=== PATIENT | male | born 1965 | race Caucasian/White ===

== ENCOUNTER 2024-06-16 18:30 | Emergency (ER) | payer OTHER, MEDICARE, SELFPAY ==
[2024-06-16] VITALS (7 sets, daily range): BP systolic 121–160; BP diastolic 70–82; BMI 23.1
[2024-06-16 19:53] LABS: % Basophils 0.2 % (0-2); % Eosinophils 6.2 % (0-6); % Immature Granulocytes 0.2 % (0-0.5); % Lymphocytes 24.5 % (20.5-51.1); % Monocytes 13.2 % (1.7-9.3); % Neutrophils 55.7 % (42.2-75.2); Absolute Eosinophils 0.3 10^3/uL (0-0.7); Absolute Lymphocytes 1.2 10^3/uL (1.2-3.4); Absolute Monocytes 0.6 10^3/uL (0.1-0.6); Absolute Neutrophils 2.6 10^3/uL (1.4-6.5); Hematocrit 40.6 % (39.0-52.0); Hemoglobin 13.7 g/dL (13.0-18.0); Mean Corp Hgb Conc. 33.7 g/dL (33.0-37.0); Mean Corpuscular Hgb 32.6 pg (27.0-31.0); Mean Corpuscular Volume 96.7 fL (80.0-94.0); Mean Platelet Volume 11.2 fL (7.4-10.4); Nucleated Red Blood Cells % 0 % (-); Platelet Count 154 10^3/uL (130-400); Red Cell Dist. Width 13.2 % (11.5-14.5); White Blood Cell Count 4.7 10^3/uL (4.8-10.8)
--- NOTE | 2024-06-16 20:00 | ED.GENMED ---
History of Present Illness
General
Chief Complaint: Breathing Problem
Source: patient and spouse
Exam Limitations: none
Time Seen by Provider: 06/16/24 19:46
Nursing documentation reviewed up to this point in time: agreed with
History of Present Illness
History of Present Illness:
The patient is a pleasant 59-year-old man who reports that he received immunizations for pneumonia and tetanus in his left arm last Sunday, which was 5 days ago. He reports he woke up the following morning with severe pain in his left armpit and
down his left arm. He denies weakness and numbness of his arms. He reports he also noticed labored breathing since then. His symptoms have been ongoing. He reports that his pain is improved since yesterday. He reports a dry cough but no fever.
He reports that at times the pain spreads into his left chest area. Currently he has minimal pain in the left arm but has no chest pain. He denies sweating and dizziness. He denies fever and redness of the left arm.
Past History
Past History
ED Past Medical History: CVA, Hypercholesterolemia and Other (Heart murmur)
ED Past Surgical History: Appendectomy and Other (Partial right lobectomy)
Social History
Tobacco: Non-smoker
Alcohol: Other
Drug: None
Personal:
Living: with family
Employment: Other
Family History
Family History: Adopted
Review of Systems
Review of Systems
Allergies reviewed?: Yes
All Other Systems: ROS reviewed and negative except as documented in HPI and ROS
Constitutional: Reports no symptoms
EENT: Reports no symptoms
Respiratory: Reports trouble breathing
Cardiac: Reports chest pain
ABD/GI: Reports no symptoms
: Reports no symptoms
Musculoskeletal: Reports muscle pain and muscle stiffness
Skin: Reports no symptoms
Neurological: Reports no symptoms
Endocrine: Reports no symptoms
Hematologic/Lymphatic: Reports no symptoms
Psychiatric: Reports no symptoms
Phy Exam
Physical Exam
Physical Exam:
Physical Exam
General: no apparent distress, not acutely ill, smiling, laughing, conversational
Neck: supple. no meningeal signs. normal psoterior pharynx
Heart: s1/s2 regular rate and rhythm, murmur present. Equal radial and femoral pulses bilaterally
Lungs: no acute respiratory distress. clear bilaterally. Speaks in full sentences without any sign of respiratory distress
Abdomen: normal bowel sounds. not tender. no CVAT. No pulsatile mass
Neuro: alert and oriented. no focal neurological deficits
Skin: no rash
Psychiatric: well kept. interactive and cooperative
Extremities: no edema. no calf tenderness. negative homans. good distal pulses. No lymphadenopathy felt in left axilla area. There is no swelling, soft tissue tenderness, rash or skin erythema or warmth of left upper
extremity including axilla area. Strong pulses in bilateral wrists.
Scores
Heart Failure Risk
Heart Failure Risk Score: Not Applicable
Course
Orders/Labs/Results
Orders:
Orders
06/16/24 18:37
Electrocardiogram (*1) Urgent
Reason for Study: Chest Pain
EKG- Treatment ONCE
06/16/24 19:28
IV Insert/Care/Rem.- Treatment PRN
06/16/24 19:44
Complete Blood Count/With Diff Urgent
Comprehensive Metabolic Panel Urgent
NT-proBNP Urgent
Troponin I Urgent
06/16/24 20:[address] Non Medication Order As Directed
Physician Order: walking pulse ox
Above order entered?: Yes
CR Chest - 2 Views Urgent
Comment:
Reason For Exam: SOB
Abnormal Lab Results
06/16/24
19:44
WBC 4.7 L 10^3/uL
(4.8-10.8)
RBC 4.20 L 10^6/uL
(4.70-6.10)
MCV 96.7 H fL
(80.0-94.0)
MCH 32.6 H pg
(27.0-31.0)
MPV 11.2 H fL
(7.4-10.4)
Monocytes % 13.2 H %
(1.7-9.3)
Eosinophils % 6.2 H %
(0-6)
Glucose 100 H mg/dl
(70-99)
06/16/24 19:44
06/16/24 19:44
Vital Signs
Initial and Last Documented VS:
Initial Vital Signs
Temp Pulse Resp BP Pulse Ox
98 F 73 18 160/82 97
06/16/24 18:32 06/16/24 18:32 06/16/24 18:32 06/16/24 18:32 06/16/24 18:32
Last Documented Vital Signs
Temp Pulse Resp BP Pulse Ox
98 F 61 24 134/76 95
06/16/24 18:32 06/16/24 22:30 06/16/24 22:30 06/16/24 22:00 06/16/24 22:30
MDM/Problems Addressed
Differential Diagnosis Includes:
Acute coronary syndrome, pneumonia, musculoskeletal pain from immunizations
MDM/Problems Addressed:
Patient reports acute chest pain and arm pain
Chronic conditions affecting care:
Partial lobectomy of right lung
*Radiology
Radiology exam reviewed: preliminary read by ED provider (Chest x-ray read by me. No acute disease) and radiology read reviewed
*Pulse Oximetry
Patient hypoxic: no
*EKG
Interpreted by ED Provider?: Yes
Interpretation: abnormal
Comparison EKG: no changes
Rate: normal
Rhythm: sinus and PVC's
Saunemin: normal axis
Interval: normal interval
QRS Pattern: normal QRS
Ischemia: non-specific ST changes
*Timber Sprinkler Interpretation
Rate: normal
Interpretation: normal
Rhythm: sinus
*Critical Care Note
Total Time (30-74mins, 75-104mins- exclusive of procedures): Not Applicable
Data Reviewed
Review of Other/Old Records Reveals: Testing (Echo shows normal LV function 2022)
Patient Management
Social determinants of health affecting care: Living situation and Strong social support
Escalation/DeEscalation of care consider admission/obs:
Patient remains extremely well and comfortable appearing. Clinically there is no sign of acute coronary syndrome. Chest x-ray shows no sign of pneumonia
ED Attending Note
-
Portions of this chart may have been created with voice recognition software.� Occasional wrong word or��sound alike� substitutions may have occurred due to the inherent limitations of voice recognition software.
Discharge Plan
Departure
Patient Disposition: Home (Routine Discharge)
Date of Disposition: 06/16/24
Time of Disposition: 22:03
Patient with high blood pressure during this ER visit?: No
Condition: Good
Covid-19: Not Applicable
Discharge Problem:
Chest pain in adult
Instructions: Chest Pain [facility] Follow Up
Prescriptions:
No Action
aspirin 81 mg Tablet,Delayed Release (Dr/Ec)
81 mg PO DAILY
rosuvastatin 10 mg Tablet
15 mg PO DAILY
Referrals:
UNKNOWN,NO INTERVIEW [Family Provider] -
Interventions
Interventions:
*Risk Screen - Suicide Last Done: 06/16/24 18:32
*General Assessment Last Done: 06/16/24 18:32
*Neglect/Abuse Screening Last Done: 06/16/24 18:32
*ED- Fall Risk Assessment Last Done: 06/16/24 19:13
*ED COVID-19 Vaccine History Last Done: 06/16/24 19:13
*Nursing Disposition Last Done: 06/16/24 22:30
ED- Cardiac Assessment Last Done: 06/16/24 19:13
ED- Pulmonary Assessment Last Done: 06/16/24 19:13
Discharge Date and Time
Discharge Date/Time: 06/16/24 20:30
Print Language: WELSH
[2024-06-16 20:11] LABS: ALT (SGPT) 26 U/L (0-50); AST (SGOT) 31 U/L (17-59); Albumin 4.6 g/dl (3.5-5.0); Alkaline Phosphatase 79 U/L (38-126); Blood Urea Nitrogen 13 mg/dl (9-20); Calcium 9.3 mg/dl (8.4-10.2); Carbon Dioxide 25 mmol/L (22-30); Chloride 104 mmol/L (98-107); Estimated Creatinine Clearance 94 ml/min; Glucose 100 mg/dl (70-99); Potassium 4.2 mmol/L (3.5-5.1); Sodium 138 mmol/L (135-145); Total Bilirubin 0.9 mg/dl (0.2-1.3); eGFR > 60.00
[2024-06-16 20:21] LABS: NT-proBNP 508 pg/ml; Troponin I < 0.012 ng/ml
== END 2024-06-16 20:30 | disposition home or self-care (01) ==
LOC: EMR 18:30
PROVIDERS: EMERGENCY PHYSICIAN Emergency Medicine
DX: R07.89 Other chest pain (principal)
CPT/HCPCS: 99285; 71046; 80053; 83880; 84484; 85025; 93005

== ENCOUNTER 2024-06-26 13:09 | Observation (INO) | payer OTHER, MEDICARE, SELFPAY ==
[2024-06-26] VITALS (17 sets, daily range): BP systolic 116–148; BP diastolic 58–76; PULSE 55–64; BMI 23.6; BMI 22.3
--- NOTE | 2024-06-26 10:07 | ED.GENMED ---
History of Present Illness
General
Chief Complaint: Chest Pain
Time Seen by Provider: 06/26/24 09:53
History of Present Illness
History of Present Illness:
Patient is a 59-year-old male with history of mitral regurgitation, mitral valve prolapse, hyperlipidemia presenting to the emergency department with chest pain and dizziness. 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
given the dyspnea on exertion they did schedule him for an echo tomorrow. While he was there he became extremely dizzy so they sent him here to the emergency room for further evaluation. He states that the dizziness has been ongoing for a few
weeks. Is mostly when he moves from sitting to standing. However it can occur while he is sitting as well. Has not passed out. Denies any positional changes. He also notes that he has some chest pain on and off. It is not exertional. He is
also having more dyspnea on exertion however he states over the past few days it has been improving.
Past History
Past History
ED Past Medical History: CVA, Hypercholesterolemia and Other (Heart murmur)
ED Past Surgical History: Appendectomy and Other (Partial right lobectomy)
Social History
Tobacco: Non-smoker
Alcohol: Other
Drug: None
Personal:
Living: with family
Employment: Other
Family History
Family History: Adopted
Phy Exam
Physical Exam
Physical Exam:
GENERAL: in no acute distress
HEENT: normocephalic, extraocular movements intact, moist oral mucosa
NECK: normal inspection
RESPIRATORY: no respiratory distress, crackles at the bases worse on the right
CARDIOVASCULAR: regular rate and rhythm, systolic murmur
ABDOMEN/: soft, non-distended, non-tender to palpation, no rebound or guarding
EXTREMITIES: non-tender, no edema/swelling
NEUROLOGIC: awake and alert, moves all extremities, no gross motor or sensory deficits, normal [id number]
SKIN: warm
Scores
Heart Score for Chest Pain Patients
STEMI patient?: Not applicable
Course
Orders/Labs/Results
Orders:
Orders
06/26/24 09:31
Electrocardiogram (*1) Urgent
Reason for Study: Chest Pain
06/26/24 09:32
EKG- Treatment ONCE
06/26/24 10:03
CT Head W/o Iv Contrast Urgent
Comment:
Reason For Exam: dizziness
Orthostatic VS- Treatment ONCE
CR Chest - 2 Views Urgent
Comment:
Reason For Exam: crackles RLL
06/26/24 10:13
Complete Blood Count/With Diff Urgent
Comprehensive Metabolic Panel Urgent
Troponin I Urgent
06/26/24 10:47
0.9% Sodium Chloride 500 ml [Nss] 500 ml IV BOLUS
Abnormal Lab Results
06/26/24
10:13
RBC 4.03 L 10^6/uL
(4.70-6.10)
MCV 98.5 H fL
(80.0-94.0)
MCH 32.5 H pg
(27.0-31.0)
MPV 11.6 H fL
(7.4-10.4)
Absolute Lymphs (auto) 1.1 L 10^3/uL
(1.2-3.4)
Lymphocytes % 19.3 L %
(20.5-51.1)
Monocytes % 10.0 H %
(1.7-9.3)
Carbon Dioxide 31 H mmol/L
(22-30)
06/26/24 10:13
06/26/24 10:13
Vital Signs
Initial and Last Documented VS:
Initial Vital Signs
Temp Pulse Resp BP Pulse Ox
98.2 F 55 16 148/59 98
06/26/24 09:29 06/26/24 09:29 06/26/24 09:29 06/26/24 09:29 06/26/24 09:29
Last Documented Vital Signs
Temp Pulse Resp BP Pulse Ox
98.2 F 55 16 124/59 97
06/26/24 09:29 06/26/24 10:46 06/26/24 10:46 06/26/24 10:00 06/26/24 10:00
MDM/Problems Addressed
Differential Diagnosis Includes:
Patient is a 59-year-old male with history of mitral regurgitation, mitral valve prolapse presenting to the emergency department with dizziness dyspnea on exertion and occasional chest pain. Vitals are unremarkable and exam does show a systolic
murmur as well as crackles at the bases of the lung. Patient does not have any neurodeficits. Unclear cause of patient's dizziness but could be orthostatic. However he states that sometimes it occurs while he is sitting. Will check blood work
EKG and CT scan of the head. Will obtain orthostatic vital signs. Given the chest pain will check troponin. The dyspnea on exertion certainly could be secondary to pulmonary edema from the mitral regurgitation or worsening valvular disease. He
is scheduled for tomorrow. Will discuss with patient's employment appeals examiner who sent him to the emergency department for further recommendations.
*Critical Care Note
Total Time (30-74mins, 75-104mins- exclusive of procedures): Not Applicable
Update Note
Update Note:
On reevaluation patient resting comfortably. He does state that when he went to CT scan and had to move from the stretcher to the CT scanner he became extremely lightheaded dizzy with the movement. Will give him a small fluid bolus. CT scan of
the head with no acute abnormality. Chest x-ray per my interpretation with no significant vascular congestion or pleural effusion.
I did discuss with cardiology INTERNIST MEDICAL DOCTOR MD that sent patient over for evaluation. Their concern was regarding patient's dizziness and history of stroke. The echo is scheduled for tomorrow. That would patient states the last and he had a stroke he had
numbness tingling in his extremities. He is on a baby aspirin.
His orthostatics were negative. I did give him fluids and he does state that when he got up out of bed the symptoms were not there. However he had an episode while at rest. Given unclear cause of patient's dizziness will admit for further
evaluation. Discussed with hospitalist who accepted patient to their service
ED Attending Note
-
Portions of this chart may have been created with voice recognition software.� Occasional wrong word or��sound alike� substitutions may have occurred due to the inherent limitations of voice recognition software.
Discharge Plan
Departure
Prescriptions:
No Action
aspirin 81 mg Tablet,Delayed Release (Dr/Ec)
81 mg PO DAILY
rosuvastatin 10 mg Tablet
15 mg PO DAILY
Referrals:
Yash Willis DO [Family Provider] -
Interventions
Interventions:
*Risk Screen - Suicide Last Done: 06/26/24 09:29
*General Assessment Last Done: 06/26/24 10:42
*Neglect/Abuse Screening Last Done: 06/26/24 09:29
*ED- Fall Risk Assessment Last Done: 06/26/24 10:42
*ED COVID-19 Vaccine History Last Done: 06/26/24 10:42
ED- Cardiac Assessment Last Done: 06/26/24 10:42
Discharge Date and Time
Print Language: OCCITAN
[2024-06-26 10:19] LABS: % Basophils 0.2 % (0-2); % Eosinophils 2.6 % (0-6); % Immature Granulocytes 0.4 % (0-0.5); % Lymphocytes 19.3 % (20.5-51.1); % Neutrophils 67.5 % (42.2-75.2); Absolute Eosinophils 0.2 10^3/uL (0-0.7); Absolute Lymphocytes 1.1 10^3/uL (1.2-3.4); Absolute Monocytes 0.6 10^3/uL (0.1-0.6); Absolute Neutrophils 3.9 10^3/uL (1.4-6.5); Hematocrit 39.7 % (39.0-52.0); Hemoglobin 13.1 g/dL (13.0-18.0); Mean Corpuscular Hgb 32.5 pg (27.0-31.0); Mean Corpuscular Volume 98.5 fL (80.0-94.0); Mean Platelet Volume 11.6 fL (7.4-10.4); Nucleated Red Blood Cells % 0 % (-); Platelet Count 155 10^3/uL (130-400); Red Blood Cell Count 4.03 10^6/uL (4.70-6.10); Red Cell Dist. Width 13.1 % (11.5-14.5); White Blood Cell Count 5.7 10^3/uL (4.8-10.8)
[2024-06-26 10:33] LABS: ALT (SGPT) 27 U/L (0-50); AST (SGOT) 24 U/L (17-59); Alkaline Phosphatase 78 U/L (38-126); Blood Urea Nitrogen 18 mg/dl (9-20); Calcium 9.3 mg/dl (8.4-10.2); Carbon Dioxide 31 mmol/L (22-30); Chloride 107 mmol/L (98-107); Glucose 99 mg/dl (70-99); Potassium 4.3 mmol/L (3.5-5.1); Sodium 141 mmol/L (135-145); Total Bilirubin 0.9 mg/dl (0.2-1.3); Total Protein 6.6 g/dl (6.3-8.2); eGFR > 60.00
[2024-06-26 10:44] LABS: Troponin I < 0.012 ng/ml
--- NOTE | 2024-06-26 10:50 | EDRN ---
Patient denied c/o dizziness with orthostatic vital signs.
[2024-06-26] MEDS: NSS 500 IV (10:55)
--- NOTE | 2024-06-26 12:21 | HPS.HSE ---
Family Physician
-
Family Physician: Yash Willis
Chief Complaint
-
dizziness
History of Present Illness
HPI
59M HX MR / MVR, prior HX small Stoke at left occipital lobe without residual weakness, HLD on statin, seen at OP Card for Morales and CP but sent to ER for persistent dizziness at rest and also positional, for few weeks
Mostly when he moves from sitting to standing and also while sitting as well
- not passed out.
- some non exertiional chest pain on and off.
- more dyspnea on exertion however he states over the past few days it has been improving.
Medical History
Past Medical History
Past Medical History: Reports Other
Additional Past Medical History:
CVA
HLD
Past Surgical History: Reports Other
Additional Past Surgical History:
Appendectomy
Hernia repair
Right lobectomy
Social History
Tobacco: Non-smoker
Alcohol: Occasional (3-4x yearly)
Drug: None
Personal:
Living: With Family
Family History
Family History: Not pertinent
Allergies / Home Medications
Allergies reflects when Allergies were last updated in [facility].
Home Medications with original date entered in [facility]
Allergy/Medication List:
Allergies
Allergy/AdvReac Type Severity Reaction Status Date / Time
No Known Allergies Allergy Verified 12/25/22 07:31
Home Medications
aspirin 81 mg tablet,delayed release 81 mg PO DAILY Blood Clot Prevention/Tx 12/25/22
rosuvastatin 10 mg tablet 15 mg PO DAILY High Cholesterol 12/25/22
Review of Systems
-
Constitutional: Reports No Symptoms
EENT: Reports No Symptoms
Respiratory: Reports Other (sob with exertion improved )
Cardiac: Reports Chest Pain
Abdomen/GI: Reports No Symptoms
: Reports No Symptoms
Musculoskeletal: Reports No Symptoms
Skin: Reports No Symptoms
Neurological: Reports Dizzy
Endocrine: Reports No Symptoms
Hematologic/Lymphatic: Reports No Symptoms
Psych: Reports No Symptoms
Physical Exam
Vital Signs
Vital Signs
Temp Pulse Resp BP Pulse Ox
98.2 F 55 16 124/59 97
06/26/24 09:29 06/26/24 10:46 06/26/24 10:46 06/26/24 10:00 06/26/24 10:00
Physical Exam
General: Well Developed, Well Nourished and No Apparent Distress
HEENT: NormoCephalic, Moist mucous membranes and Atraumatic
Respiratory: Clear
Cardiac: S1/S2 and Regular Rhythm
GI: Soft, Non Tender, Non Distended and Normal Bowel Sounds; No Organomegaly
Rectal: Deferred by Provider
Musculoskeletal: No Clubbing, No Cyanosis and No Edema
Skin: No Rash
Neuro: Nonfocal/grossly intact
Laboratory Results
-
06/26/24 10:13
06/26/24 10:13
Laboratory Results
Total Bilirubin 0.9 mg/dl (0.2-1.3) 06/26/24 10:13
AST 24 U/L (17-59) 06/26/24 10:13
ALT 27 U/L (0-50) 06/26/24 10:13
Alkaline Phosphatase 78 U/L (38-126) 06/26/24 10:13
Troponin I < 0.012 ng/ml 06/26/24 10:13
Data Reviewed
-
Diagnostic Radiology: Report Reviewed by me
Medical Tests (Nuc Med, Echo, EKG etc): Report Reviewed by me
Lab Data: Labs Reviewed by me
Old Records: Reviewed
Impression/Plan
-
Data
Selected Entries
06/26/24
09:29 06/26/24
09:51 06/26/24
10:00
Temp 98.2 F
Pulse 55 56
Blood pressure 148/59 130/63
SaO2 98
Oxygen Mode of Delivery Room air
Laboratory Tests
06/26/24
10:13
WBC 5.7
Hgb 13.1
Plt Count 155
Carbon Dioxide 31 H
Creatinine 1.0
eGFR > 60.00
Troponin I < 0.012
EKG
SINUS BRADYCARDIA WITH OCCASIONAL PREMATURE VENTRICULAR COMPLEXES
POSSIBLE LEFT ATRIAL ENLARGEMENT
BORDERLINE ECG
WHEN COMPARED WITH ECG OF 16-JUN-2024 18:42,
NO SIGNIFICANT CHANGE WAS FOUND
CXR
No acute cardiopulmonary abnormality
HCT Head W/o Iv Contrast
No acute intracranial abnormality noted.
Small focus of encephalomalacia within the left occipital lobe.
02/28/23 TTE
Normal left ventricular size and systolic function.
LV ejection fraction is 57% by Montano's biplane method of discs.
Mild concentric left ventricular hypertrophy.
Myxomatous appearing mitral valve.
Bileaflet mitral valve prolapse.
Mild to moderate eccentric mitral regurgitation-posteriorly directed.
Indexed LA volume is mildly abnormal (35-41 mL/m2).
Mild tricuspid regurgitation.
Estimated pulmonary artery pressure of 30 mmHg assuming a right atrial pressure
of 3 mmHg.
Trace pulmonic regurgitation.
Mild aortic regurgitation.
The IVC is of normal size and demonstrates normal respiratory variation.
Last hospitalist admission: 12/25/22 -12/28/22 PDXs: Partial small bowel obstruction versus enteritis
ASSESSMENT & PLAN
Pending Rx reconciliation
Acute dizzy spell and ongoing at rest and positional
Prior HX Stroke with non residual deficits
Clinically dehydrated
- Non focal neuro deficit
- NEG postural orthostasis and serial Ortho VSS daily
- Unremarkable Labs
- NEG HCT
- Remain dizzy despite IVF
- will cont. more IV NS 60/h for 1000 CC
- Fall precaution
- PT consult
- Neuro consulted
MORALES and CP : currently CP free
Sinus Vahe cardia
NEG EKG for acute ischemic changes
HX MR/MVR
- seen at Card office and sent to ER for dizziness
- for ECHO in AM
- [facility] card consulted
Prior HX CVA likely old stroke at Small focus of encephalomalacia within the left occipital lobe.
HLD on statin
- c/w SENIOR PROJECT ARCHITECT ASA and Rosuvastatin
Abnormal Prior TTE
LVEF 57%
Myxomatous appearing mitral valve.
Bileaflet MVR
Mild to moderate MR -posteriorly directed.
Indexed LA volume is mildly abnormal (35-41 mL/m2).
Mild TR
Estimated PASP 30 mmHg assuming a right atrial pressure of 3 mmHg.
Trace VT
Mild AR
The IVC is of normal size and demonstrates normal respiratory variation.
- follow up with [facility] Card as OP
- f/u ECHO in AM
DVT Px: LMWH
Code: Full
Obs TLM
--- NOTE | 2024-06-26 12:41 | CON.NEURO ---
Consultation
Order
Date of Consultation: 06/26/24
Requesting Provider: Darvin Jasso PA
Reason for Consult: Dizziness
Neurology Consultation Note.
HPI: This is a 59-year-old man who presented to [facility] on 06/26/2024 with dizziness, shortness of breath and chest pain. The dizziness is described as imbalance/lightheadedness, provoked by positional changes, particularly when
going from sitting to standing, but can also occur at rest. The patient denies associated symptoms such as ear pain, changes in swallowing, voice alterations, or double vision.
According to EMR patient was seen in May 2022 for dizziness with associated coughing.
Mr. Ann has a history of cryptogenic(?) left BEVERAGE MANAGER territory stroke in 2012 with residual right visual field deficits and cognitive deficits. According to patient's spouse the patient has had progression of his memory deficits over the last
several years.
ER VS: 148/59, 55�51, afebrile.
EKG: Sinus bradycardia, QTc Int : 409 ms
PDMP: no recently prescribed medic
Labs: normal glucose, sodium, creatinine, WBCs, platelets.
CT head wo contrast�chronic left BEVERAGE MANAGER infarct.
TTE(05/16/2012) The atrial septum is aneurysmal with equivocal criteria for a patent foramen ovale by color flow. However an ejection of the agitated saline confirms a patent foramen ovale with a few microbubbles crossing into the left atrium.
PMH: Left BEVERAGE MANAGER stroke (2012), PFO, DLP, B12 deficiency
PSH: Left inguinal hernia repair, appendectomy,R LL lobectomy for congenital formation
SH: , on disability, occasional smoker, no history excessive alcohol use, completed high school and tech school, former tractor trailer truck driver, does not drive
FH: Adopted
All:NKDA
ROS: Constitutional: Negative. Negative for chills, fever and unexpected weight change.
HENT: Negative for ear pain, hearing loss, tinnitus and trouble swallowing.
Eyes: Positive for visual limitations and right
Respiratory: Negative for cough, choking and shortness of breath.
Cardiovascular: Negative for chest pain, palpitations and leg swelling.
Gastrointestinal: Negative for abdominal pain and vomiting.
Endocrine: Negative. Negative for cold intolerance.
Genitourinary: Negative for dysuria, flank pain and urgency.
Musculoskeletal: Negative for back pain, gait problem, neck pain and neck stiffness.
Skin: Negative for rash.
Allergic/Immunologic: Negative. Negative for immunocompromised state.
Neurological: Positive for dizziness, short-term memory problems
Psychiatric/Behavioral: Negative for behavioral problems, confusion and hallucinations.
General: Well developed. In no acute distress.
Cardio: Regular rate and rhythm without murmur. Extremities are without cyanosis or edema.
Neuro:
Mental Status: Alert, oriented to person, month, year. Did not know the date. Preserved attention and comprehension. Nonfluent. Follows simple requests consistently. No hemineglect
Cranial Nerves: Pupils are equally round and reactive to light. EOMs full. Right homonymous hemianopsia no ptosis. No nystagmus. V1-V3 intact to light touch and pinprick bilaterally, symmetric. Face symmetric. Normal hearing AU. The palate
elevated well. SCMs and traps 5/5. Tongue midline. No dysarthria.
Motor: Normal bulk and tone. No pronator or arm drift. Strength 5/5 throughout. No clonus.
Reflexes: 2+ throughout the upper extremities and knees. Plantar responses flexor bilaterally.
Sensory: Normal vibration at the toes
Coordination: No dysmetria or tremor.
Gait: deferred
Assessment and Plan:
I. Dizziness. No evidence of nystagmus, dysmetria, cranial nerve abnormalities to suggest FIRE AND EXPLOSION INVESTIGATOR origin.
II. Chronic cryptogenic left BEVERAGE MANAGER stroke. PFO.
III. Vascular encephalopathy.
-Continue Telemetry monitoring
-Please obtain orthostatic vital signs
-Cardiology consult
-Brain MRI without venkat
-Please check TFTs, urine tox.
-Please obtain medical records from Dr. Muir office for review
-Outpatient EEG
-DVT prophylaxis.
I personally reviewed all radiology and labs along with past medical records pertinent to current medical problems. Total time spent in patient care is 60 minutes.
Thank you for allowing us to participate in the care of this patient. We will continue to follow. Please do not hesitate to contact us with any questions or concerns.
Subjective/Objective
Subjective Data
Date of Service: June 26, 2024
Objective Data
Vital Signs
Temp Pulse Resp BP Pulse Ox
36.8 C 60 14 126/69 97
06/26/24 09:29 06/26/24 12:30 06/26/24 12:30 06/26/24 12:00 06/26/24 10:00
Lab Results
06/26/24 10:13
06/26/24 10:13
Sodium 141 mmol/L (135-145) 06/26/24 10:13
Potassium 4.3 mmol/L (3.5-5.1) 06/26/24 10:13
BUN 18 mg/dl (9-20) 06/26/24 10:13
Glucose 99 mg/dl (70-99) 06/26/24 10:13
Calcium 9.3 mg/dl (8.4-10.2) 06/26/24 10:13
Patient Allergies
No Known Allergies Allergy (Verified 12/25/22 07:31)
Medications
-
Home Medications
�Medication �Instructions �Recorded
aspirin 81 mg tablet,delayed 81 mg PO DAILY Blood Clot 12/25/22
release Prevention/Tx
rosuvastatin 10 mg tablet 15 mg PO DAILY High Cholesterol 12/25/22
Vital Signs and Labs
-
Vital Signs and Labs:
Vital Signs
Temp Pulse Resp BP Pulse Ox
36.8 C 60 14 126/69 97
06/26/24 09:29 06/26/24 12:30 06/26/24 12:30 06/26/24 12:00 06/26/24 10:00
Lab Results
06/26/24 10:13
06/26/24 10:13
Sodium 141 mmol/L (135-145) 06/26/24 10:13
Potassium 4.3 mmol/L (3.5-5.1) 06/26/24 10:13
BUN 18 mg/dl (9-20) 06/26/24 10:13
Glucose 99 mg/dl (70-99) 06/26/24 10:13
Calcium 9.3 mg/dl (8.4-10.2) 06/26/24 10:13
Home Medications
-
Home Medications
aspirin 81 mg tablet,delayed release 81 mg PO DAILY Blood Clot Prevention/Tx 12/25/22
rosuvastatin 10 mg tablet 15 mg PO DAILY High Cholesterol 12/25/22
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
[2024-06-26 15:41] LABS: TSH Reflex To Free T4 0.47 uIU/ml (0.47-4.68)
[2024-06-26 17:49] LABS: ALT (SGPT) 27 U/L (0-50); AST (SGOT) 25 U/L (17-59); Albumin 4.3 g/dl (3.5-5.0); Alkaline Phosphatase 90 U/L (38-126); Blood Urea Nitrogen 16 mg/dl (9-20); Calcium 9.2 mg/dl (8.4-10.2); Carbon Dioxide 27 mmol/L (22-30); Chloride 106 mmol/L (98-107); Estimated Creatinine Clearance 92 ml/min; Glucose 95 mg/dl (70-99); Potassium 4.2 mmol/L (3.5-5.1); Sodium 141 mmol/L (135-145); Total Bilirubin 1.1 mg/dl (0.2-1.3); Total Protein 6.7 g/dl (6.3-8.2); eGFR > 60.00
[2024-06-26] MEDS: LOVENOX 40 MG SC (18:21)
[2024-06-26] MEDS: NSS 1000 IV (18:22)
[2024-06-26 19:39] LABS: Amphetamines Negative (Negative); Barbiturates Negative (Negative); Benzodiazepines Negative (Negative); Buprenorphine Negative (Negative); Cocaine Negative (Negative); Marijuana Negative (Negative); Methadone Negative (Negative); Methamphetamines Negative (Negative); Opiates Negative (Negative); Phencyclidine Negative (Negative); Tricyclic Antidepressants Negative (Negative)
[2024-06-27 03:35] VITALS: BP 110/58
[2024-06-27] MEDS: NSS 1000 IV (06:10)
[2024-06-27 08:16] LABS: Glycohemoglobin (HgbA1c) 5.7 % (4.0-5.6)
[2024-06-27 08:29] LABS: Hematocrit 40.4 % (39.0-52.0); Hemoglobin 13.4 g/dL (13.0-18.0); Mean Corp Hgb Conc. 33.2 g/dL (33.0-37.0); Mean Corpuscular Hgb 32.4 pg (27.0-31.0); Mean Corpuscular Volume 97.6 fL (80.0-94.0); Mean Platelet Volume 11.8 fL (7.4-10.4); Platelet Count 144 10^3/uL (130-400); Red Blood Cell Count 4.14 10^6/uL (4.70-6.10); Red Cell Dist. Width 13.1 % (11.5-14.5); White Blood Cell Count 5.8 10^3/uL (4.8-10.8)
[2024-06-27 08:45] LABS: VerifyNow Aspirin 440 ARU
[2024-06-27 08:56] LABS: Troponin I 0.014 ng/ml
[2024-06-27] MEDS: CRESTOR 15 MG PO (09:28)
[2024-06-27] MEDS: ASPIR LOW (ENTERIC COATED) 81 MG PO (09:28)
[2024-06-27 09:33] VITALS: BP 143/69
--- NOTE | 2024-06-27 09:38 | W.PN.HOSP.TC ---
Today's Communication/Plan
-
dc
Assessment / Plan
Assessment / Plan
Physical Exam
General: Well Developed, Well Nourished and No Apparent Distress
HEENT: NormoCephalic, Moist mucous membranes and Atraumatic. No nystagmus
Respiratory: Clear
Cardiac: S1/S2, + murmur
GI: Soft, Non Tender, Non Distended and Normal Bowel Sounds; No Organomegaly
Rectal: No bleeding
Musculoskeletal: No Clubbing, No Cyanosis and No Edema
Skin: No Rash
Neuro: Nonfocal/grossly intact
Psych, calm.
#Acute dizzy spell and ongoing at rest and positional
Prior HX Stroke with non residual deficits
Clinically dehydrated
He denies dizziness today. Normal orthostatic blood pressure. Discussed with neurologist and java software developer, okay to discharge home with no changes.
# Sudden dizzy spell. This could be vertigo. No hearing loss. No tinnitus. Advised the patient to try meclizine if reoccurs
Continue with aspirin
Total discharge time spent to see the patient, examined the patient, reviewed lab and data results, discussed discharge planning with patient and , java software developer/neurologist, nursing staff around 65-minute
Anticipated Discharge: Today
Subjective/Interval History
-
Date of Service: June 27, 2024
He is not dizzy today
No chest pain
Objective Data
-
Labs:
Laboratory Results
06/27/24
07:44
WBC 5.8
Hgb 13.4
Hct 40.4
Plt Count 144
Vital Signs:
Vital Signs
Temp Pulse Resp BP Pulse Ox
98.0 F 69 20 143/69 97
06/27/24 09:33 06/27/24 09:33 06/27/24 09:33 06/27/24 09:33 06/27/24 09:33
I&O
06/26/24 06/27/24 06/28/24
06:59 06:59 06:59
Intake Total 560 / 560
Balance 560 / 560
--- NOTE | 2024-06-27 11:08 | W.PN.NEURO.1 ---
Today's Communication / Plan
-
.
Subjective/Objective
Subjective Data
Date of Service: June 27, 2024
Neurology follow-up note.
Mr. Ann reports no recurrent episodes of dizziness. He denies having headache or new visual symptoms.
Orthostatic vital signs (06/26/2024�negative
Brain MRI is pending
TSH�normal
PMH: Left SIDE PANEL PADDER stroke (2012), PFO, DLP, B12 deficiency
PSH: Left inguinal hernia repair, appendectomy,R LL lobectomy for congenital formation
SH: , on disability, occasional smoker, no history excessive alcohol use, completed high school and tech school, former trucker, does not drive
FH: Adopted
All:NKDA
ROS: Constitutional: Negative. Negative for chills, fever and unexpected weight change.
HENT: Negative for ear pain, hearing loss, tinnitus and trouble swallowing.
Eyes: Positive for visual limitations and right
Respiratory: Negative for cough, choking and shortness of breath.
Cardiovascular: Negative for chest pain, palpitations and leg swelling.
Gastrointestinal: Negative for abdominal pain and vomiting.
Endocrine: Negative. Negative for cold intolerance.
Genitourinary: Negative for dysuria, flank pain and urgency.
Musculoskeletal: Negative for back pain, gait problem, neck pain and neck stiffness.
Skin: Negative for rash.
Allergic/Immunologic: Negative. Negative for immunocompromised state.
Neurological: Positive for dizziness, short-term memory problems
Psychiatric/Behavioral: Negative for behavioral problems, confusion and hallucinations.
General: Well developed. In no acute distress.
Cardio: Regular rate and rhythm without murmur. Extremities are without cyanosis or edema.
Neuro:
Mental Status: Alert, oriented to person, month, year. Did not know the date. Preserved attention and comprehension. Nonfluent. Follows simple requests consistently. No hemineglect
Cranial Nerves: Pupils are equally round and reactive to light. EOMs full. Right homonymous hemianopsia no ptosis. No nystagmus. V1-V3 intact to light touch and pinprick bilaterally, symmetric. Face symmetric. Normal hearing AU. The palate
elevated well. SCMs and traps 5/5. Tongue midline. No dysarthria.
Motor: Normal bulk and tone. No pronator or arm drift. Strength 5/5 throughout. No clonus.
Reflexes: 2+ throughout the upper extremities and knees. Plantar responses flexor bilaterally.
Sensory: Normal vibration at the toes
Coordination: No dysmetria or tremor.
Gait: deferred
Assessment and Plan:
I. Transient dizziness
II. Chronic cryptogenic left SIDE PANEL PADDER stroke. PFO.
III. CHronic vascular encephalopathy.
-Continue Telemetry monitoring
-Brain MRI without venkat
-Outpatient EEG
-DVT prophylaxis.
I personally reviewed all radiology and labs along with past medical records pertinent to current medical problems. Total time spent in patient care is 35 minutes.
Thank you for allowing us to participate in the care of this patient. We will continue to follow. Please do not hesitate to contact us with any questions or concerns.
Objective Data
Vital Signs
Temp Pulse Resp BP Pulse Ox
36.7 C 69 20 143/69 97
06/27/24 09:33 06/27/24 09:33 06/27/24 09:33 06/27/24 09:33 06/27/24 09:33
Lab Results
06/27/24 07:44
06/26/24 17:20
Sodium 141 mmol/L (135-145) 06/26/24 17:20
Potassium 4.2 mmol/L (3.5-5.1) 06/26/24 17:20
BUN 16 mg/dl (9-20) 06/26/24 17:20
Glucose 95 mg/dl (70-99) 06/26/24 17:20
Calcium 9.2 mg/dl (8.4-10.2) 06/26/24 17:20
Ur Buprenorphine Negative (Negative) 06/26/24 19:22
Patient Allergies
No Known Allergies Allergy (Verified 12/25/22 07:31)
Vital Signs and Labs
-
Vital Signs and Labs:
Vital Signs
Temp Pulse Resp BP Pulse Ox
36.7 C 69 20 143/69 97
06/27/24 09:33 06/27/24 09:33 06/27/24 09:33 06/27/24 09:33 06/27/24 09:33
Lab Results
06/27/24 07:44
06/26/24 17:20
Sodium 141 mmol/L (135-145) 06/26/24 17:20
Potassium 4.2 mmol/L (3.5-5.1) 06/26/24 17:20
BUN 16 mg/dl (9-20) 06/26/24 17:20
Glucose 95 mg/dl (70-99) 06/26/24 17:20
Calcium 9.2 mg/dl (8.4-10.2) 06/26/24 17:20
Ur Buprenorphine Negative (Negative) 06/26/24 19:22
Medications
-
Medications:
Generic Name Dose Route Start Last Admin
Trade Name Freq PRN Reason Stop Dose Admin
Acetaminophen 1,000 mg 06/27/24 11:01
Acetaminophen 500 Mg Tablet PO 07/25/24 11:00
Q6HPRN PRN
mild to mod pain
Aspirin 81 mg 06/27/24 08:00 06/27/24 09:28
Aspirin 81 Mg (Enteric Coated) Tablet PO 07/25/24 07:59 81 mg
DAILY PEYTON Administration
Enoxaparin Sodium 40 mg 06/26/24 18:00 06/26/24 18:21
Enoxaparin Sodium 40 Mg/0.4 Ml Syringe SC 07/24/24 17:59 40 mg
QPM PEYTON Administration
Rosuvastatin Calcium 15 mg 06/27/24 08:00 06/27/24 09:28
Rosuvastatin (Crestor) 10 Mg Tablet PO 07/25/24 07:59 15 mg
DAILY PEYTON Administration
Home Medications
-
Home Medications
aspirin 81 mg tablet,delayed release 81 mg PO DAILY Blood Clot Prevention/Tx 12/25/22
cyanocobalamin (vitamin B-12) 500 mcg tablet 500 mcg PO DAILY Supplement 06/26/24
rosuvastatin 20 mg tablet 20 mg PO DAILY High Cholesterol 06/26/24
[2024-06-27 11:29] VITALS: BP 124/71; BP 129/69; BP 147/66; PULSE 69; PULSE 70; PULSE 78
[2024-06-27 11:59] VITALS: BP 137/78
[2024-06-27 12:01] VITALS: BP 137/76; PULSE 67; O2SAT 97
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
--- NOTE | 2024-06-27 13:48 | W.DCSUMMARY ---
Discharge Summary
Discharge Data
Date of Admission: 06/26/24
Date of Discharge: 06/27/24
-
Pending Results: No
Hospital Course
59 years old male who was referred to the emergency room for acute onset of dizzy spells. Patient did not have hypotension. He was noted to have mild dehydration was given IV fluid. Patient was evaluated by workforce management manager. Patient had
echocardiogram done showed LVEF 66%, stage II diastolic dysfunction, thickened mitral valve with bileaflet mitral valve prolapse/severe eccentric mitral regurgitation, aortic stenosis, mild aortic regurgitation, mild tricuspid regurgitation,
pulmonary artery pressure of 40 to 45 mmHg. Patient had brain imaging studies including MRI of the brain that did not show acute stroke. Facility Assistant recommended outpatient follow-up for further workup and cardio thoracic surgery evaluation for
severe mitral regurgitation. Patient was advised to follow-up with his a primary care doctor. Patient was seen by physical therapy and speech, he did not have needs. He remained hemodynamically stable and was discharged home in a stable condition.
Discharge Plan
-
Patient Disposition: Home (Routine Discharge)
Discharge Diagnosis/Procedures: Vertigo
You are seen by workforce management manager and neurologist. You had brain imaging studies that did not show acute stroke. Facility Assistant recommended outpatient follow-up for evaluation of severe mitral regurgitation.
Diet: As tolerated
Specialty Instructions: Weigh Daily- Call MD for wt gain/loss 3 lbs overnight/5 lbs in 1 week
Referrals:
Yash Willis, [Family Provider] - in one to two weeks
Augusto Randall MD [Active] - 07/08/24 2:20 pm (You have an appointment at the [facility] office. Please call with questions. )
Prescriptions:
Continued
aspirin 81 mg Tablet,Delayed Release (Dr/Ec)
81 mg PO DAILY
cyanocobalamin (vitamin B-12) 500 mcg Tablet
500 mcg PO DAILY
rosuvastatin 20 mg Tablet
20 mg PO DAILY
Discharge Orders:
Discharge Patient (As Directed); Ordered 06/27/24
Ordered By: Yaniv Ocampo
Discharge Date and Time
Print Language: UPPER SORBIAN
--- NOTE | 2024-06-27 14:35 | PTCARENOTE ---
Reviewed discharge instructions with Pt and family member present. Answered all questions; Tele monitor and IV removed. Transport called to bring pt down to pickup area via wheelchair. D/c'd to home
--- NOTE | 2024-06-27 14:38 | CM ---
Initial assessment completed
SYKES form explained and signed @ 1430
Pharmacy verified: [facility] @ [address] [place] [address]
Patient and [facility]; railings on stairs
PLOF: independent with personal care; no device with ambulation
No SNF or Home Health utilization history
will transport home
Plan: discharge to home; no needs
== END 2024-06-27 14:45 | disposition home or self-care (01) ==
LOC: 4 WEST ACU 13:09
PROVIDERS: ADMITTING PHYSICIAN Internal Medicine; ATTENDING PHYSICIAN Internal Medicine; EMERGENCY PHYSICIAN Student in an Organized Health Care Education/Training Program; FAMILY PHYSICIAN Family Medicine; OTHER PHYSICIAN Psychiatry & Neurology Neurology
DX: R42 Dizziness and giddiness (principal); R07.89 Other chest pain; E78.00 Pure hypercholesterolemia, unspecified; R06.09 Other forms of dyspnea; G93.89 Other specified disorders of brain; I67.81 Acute cerebrovascular insufficiency; E86.0 Dehydration; E53.8 Deficiency of other specified B group vitamins; I49.3 Ventricular premature depolarization; R29.818 Other symptoms and signs involving the nervous system; Q21.12 Patent foramen ovale; R00.1 Bradycardia, unspecified; F17.200 Nicotine dependence, unspecified, uncomplicated; G93.40 Encephalopathy, unspecified; I70.0 Atherosclerosis of aorta; I34.1 Nonrheumatic mitral (valve) prolapse; I34.0 Nonrheumatic mitral (valve) insufficiency; Z90.2 Acquired absence of lung [part of]; Z86.73 Personal history of transient ischemic attack (TIA), and cerebral infarction without residual deficits; Z79.899 Other long term (current) drug therapy; Z79.82 Long term (current) use of aspirin; Z90.49 Acquired absence of other specified parts of digestive tract
CPT/HCPCS: 70450; 70551; 71046; 80053; 80306; 83036; 84443; 84484; 85025; 85027; 85576; 93005; 93306; 96360; 97161; 97165; 99285; G0378

== ENCOUNTER 2024-07-17 06:52 | Day surgery (SDC) | payer OTHER, MEDICARE, SELFPAY ==
[2024-07-17] VITALS (7 sets, daily range): BP systolic 120–142; BP diastolic 63–78; BMI 22.5
--- NOTE | 2024-07-17 10:24 | ITS.CL.CATH ---
Pipe Washer - Catheterization
Cardiac Catheterization
Procedure Report:
LEFT HEART CATHETERIZATION
Date of Procedure: July 17, 2024
Referring: Dr. Augusto Randall
PROCEDURES:
1. Left heart catheterization with coronary and single-plane left ventriculography
INDICATION: Severe mitral regurgitation
ACCESS: Right radial artery, 6 Norwegian sheath
HEMODYNAMICS : (mmHg)
AO (s/d) : 119/70, 88
LV (s/d) : 116/13
LVEDP : 31
CORONARY FINDINGS
DOMINANCE: Right
LEFT MAIN: Normal
LEFT ANTERIOR DESCENDING: The LAD arises normally from the left main running in the anterior interventricular groove. The LAD wraps completely around the apex supplying a significant portion of the inferior wall. The first diagonal branch arises
proximally from the LAD.
CIRCUMFLEX: Medium caliber nondominant vessel. OM1 arises very proximally running in a course typical of a ramus intermedius. The circumflex terminates in a small to medium caliber bifurcating OM 2 and OM 3 which are widely patent
RIGHT CORONARY ARTERY: The right coronary artery is a large-caliber vessel that is widely patent
VENTRICULOGRAPHY: Left ventriculography is performed in an RODRIGUEZ projection. The digital single-plane left ventricular ejection fraction is estimated at 50% with +4 mitral regurgitation completely filling a dilated left atrium
SEDATION: 15 minutes of procedural sedation was utilized. An independent medical aides teacher was present to assist with and help manage the patient's level of consciousness and physiologic status.
RADIATION SUMMARY: Fluoro Time (min): 3.6, Dose (mGy): 193, DAP (Gy.cm2) : 15.0
Closure Device: TR band
CONCLUSIONS
1. Nonobstructive coronary disease
2. Severe mitral regurgitation with mildly reduced LVEF estimated at 50%
RECOMMENDATIONS
1. Will follow-up with Dr. Carreno as scheduled
Copy to: Dr. Augusto Randall
[2024-07-17] MEDS: NSS 1000 IV (10:35)
== END 2024-07-17 13:20 | disposition home or self-care (01) ==
LOC: CATH 06:52
PROVIDERS: ATTENDING PHYSICIAN Internal Medicine Interventional Cardiology; FAMILY PHYSICIAN Family Medicine; OTHER PHYSICIAN Internal Medicine Cardiovascular Disease
DX: I25.10 Atherosclerotic heart disease of native coronary artery without angina pectoris (principal); I10 Essential (primary) hypertension; I08.3 Combined rheumatic disorders of mitral, aortic and tricuspid valves; I08.8 Other rheumatic multiple valve diseases; Z79.82 Long term (current) use of aspirin; Z79.899 Other long term (current) drug therapy
CPT/HCPCS: 93320; 93312; 93325; 93458; 99152; C1894; Q9967

== ENCOUNTER 2024-07-29 04:57 | Inpatient (IN) | payer OTHER, MEDICARE, SELFPAY ==
[2024-07-23 08:37] VITALS: BMI 24.7
[2024-07-23 09:22] LABS: % Basophils 0.1 % (0-2); % Eosinophils 3.7 % (0-6); % Immature Granulocytes 0.1 % (0-0.5); % Lymphocytes 19.3 % (20.5-51.1); % Monocytes 8.3 % (1.7-9.3); % Neutrophils 68.5 % (42.2-75.2); Absolute Eosinophils 0.3 10^3/uL (0-0.7); Absolute Lymphocytes 1.4 10^3/uL (1.2-3.4); Absolute Monocytes 0.6 10^3/uL (0.1-0.6); Absolute Neutrophils 4.8 10^3/uL (1.4-6.5); Hematocrit 46.4 % (39.0-52.0); Hemoglobin 15.4 g/dL (13.0-18.0); Mean Corp Hgb Conc. 33.2 g/dL (33.0-37.0); Mean Corpuscular Hgb 32.5 pg (27.0-31.0); Mean Corpuscular Volume 97.9 fL (80.0-94.0); Mean Platelet Volume 11.8 fL (7.4-10.4); Nucleated Red Blood Cells % 0 % (-); Platelet Count 152 10^3/uL (130-400); Red Blood Cell Count 4.74 10^6/uL (4.70-6.10); Red Cell Dist. Width 12.9 % (11.5-14.5)
[2024-07-23 09:27] LABS: Urine Albumin Negative (Neg - Trace); Urine Bilirubin Negative (Negative); Urine Character Clear (Clear); Urine Color Yellow; Urine Glucose Negative (Negative); Urine Ketone Negative (Negative); Urine Leukocyte Negative (Negative); Urine Nitrite Negative (Negative); Urine Occult Blood 1+ (Negative); Urine Urobilinogen Negative (Neg - 1+)
[2024-07-23 09:32] LABS: INR 0.89; PT 12.5 Sec (11.4-14.6)
[2024-07-23 09:45] LABS: ALT (SGPT) 26 U/L (0-50); AST (SGOT) 24 U/L (17-59); Albumin 5.1 g/dl (3.5-5.0); Alkaline Phosphatase 93 U/L (38-126); Blood Urea Nitrogen 19 mg/dl (9-20); Calcium 9.9 mg/dl (8.4-10.2); Carbon Dioxide 28 mmol/L (22-30); Chloride 101 mmol/L (98-107); Direct Bilirubin 0.3 mg/dl (0.0-0.4); Estimated Creatinine Clearance 73 ml/min; Glucose 99 mg/dl (70-99); Potassium 4.4 mmol/L (3.5-5.1); Sodium 143 mmol/L (135-145); Total Protein 7.8 g/dl (6.3-8.2); eGFR > 60.00
[2024-07-23 09:49] LABS: Urine Red Blood Cell 0-2 /HPF (0-2); Urine Squamous Cell 0-2 /LPF (Few); Urine White Cell 0-2 /HPF (0-5)
--- NOTE | 2024-07-23 10:18 | CM ---
Chart reviewed. Met with the patient and his in [facility]. Reviewed preoperative and postoperative instructions and restrictions, along with showering instructions. Gave patient 2 soaps. Patient is agreeable to a home visit by CT Transitional RN.
Patient is independent of ADLS, has had a stroke in the past with only short term memory loss and peripheral vision loss, lives with his in a 2 STH, 0 TERI, 5 steps inside the home, 0 DME. Plan is for the patient to return home with CT
Transitional RN.
[2024-07-29] VITALS (19 sets, daily range): BP systolic 84–148; BP diastolic 47–89; BMI 22.6
[2024-07-29] MEDS: LOPRESSOR 25 MG PO (05:25)
[2024-07-29] MEDS: MAGNESIUM OXIDE 500 MG PO (05:30)
[2024-07-29] MEDS: BACTROBAN 2% OINTMENT 1 APPLIC NASAL ×2 (05:31→20:21)
[2024-07-29] MEDS: PROTONIX 40 MG PO (05:31)
--- NOTE | 2024-07-29 05:51 | PTCARENOTE ---
Patient arrived for SDA for MVR, TVR with AT. Admission performed, confirmed CHG showers, NPO PMN, patient surgically clipped, preop medications administered. Awaiting transfer to [facility].
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
[2024-07-29 07:26] LABS: ACT+ - POC 101 Seconds (82-134)
[2024-07-29 07:38] LABS: Urine Albumin 1+ (Neg - Trace); Urine Bilirubin Negative (Negative); Urine Character Clear (Clear); Urine Color Yellow; Urine Glucose Negative (Negative); Urine Ketone Negative (Negative); Urine Leukocyte 1+ (Negative); Urine Nitrite Negative (Negative); Urine Occult Blood 1+ (Negative); Urine Specific Gravity 1.015 (<1.030); Urine Urobilinogen Negative (Neg - 1+)
[2024-07-29 08:24] LABS: ACT+ - POC 510 Seconds (82-134)
[2024-07-29 08:30] LABS: B.E. - POC 0.2 mmol/L; Glucose - POC 99 mg/dl (70-99); HCO3 - POC 24 mmol/L (21-28); Hematocrit - POC 37 % PCV (42-52); Hemodilution- POC No; Hemoglobin Calculated - POC 12.6; Ionized Calcium - POC 1.17 mmol/L (1.15-1.33); Lactate - POC 1.32 mmol/L (0.36-0.75); O2 Saturation %Calculated-POC 99.7 % (94-98); PCO2 - POC 34 mmHg (35-48); PO2 - POC 193 mmHg (83-108); Sodium - POC 143 mmol/L (136-145); Specimen Type - POC Arterial; pH - POC 7.45 (7.35-7.45)
[2024-07-29 08:32] LABS: Urine Squamous Cell 0-2 /LPF (Few)
[2024-07-29 08:33] LABS: Urine Amorphous Seen
[2024-07-29 08:34] LABS: Urine Red Blood Cell 0-2 /HPF (0-2); Urine White Cell 0-2 /HPF (0-5)
[2024-07-29 08:40] LABS: ACT+ - POC 494 Seconds (82-134)
[2024-07-29 09:02] LABS: B.E. - POC 2.6 mmol/L; Glucose - POC 99 mg/dl (70-99); HCO3 - POC 28 mmol/L (21-28); Hematocrit - POC 32 % PCV (42-52); Hemodilution- POC Yes; Hemoglobin Calculated - POC 10.8; Ionized Calcium - POC 0.98 mmol/L (1.15-1.33); Lactate - POC 0.62 mmol/L (0.36-0.75); PCO2 - POC 48 mmHg (35-48); PO2 - POC 425 mmHg (83-108); Potassium - POC 5.4 mmol/L (3.5-5.1); Sodium - POC 138 mmol/L (136-145); Specimen Type - POC Arterial; pH - POC 7.38 (7.35-7.45)
[2024-07-29 09:14] LABS: ACT+ - POC 630 Seconds (82-134)
[2024-07-29 09:27] LABS: B.E. - POC 3.3 mmol/L; Glucose - POC 129 mg/dl (70-99); HCO3 - POC 28 mmol/L (21-28); Hematocrit - POC 33 % PCV (42-52); Hemodilution- POC Yes; Hemoglobin Calculated - POC 11.2; Ionized Calcium - POC 1.07 mmol/L (1.15-1.33); Lactate - POC 0.92 mmol/L (0.36-0.75); O2 Saturation %Calculated-POC 99.9 % (94-98); PCO2 - POC 44 mmHg (35-48); PO2 - POC 333 mmHg (83-108); Potassium - POC 5.5 mmol/L (3.5-5.1); Sodium - POC 139 mmol/L (136-145); Specimen Type - POC Arterial; pH - POC 7.42 (7.35-7.45)
--- NOTE | 2024-07-29 09:37 | CM ---
pt in OR today, cm following
[2024-07-29 09:39] LABS: ACT+ - POC 524 Seconds (82-134)
[2024-07-29 09:54] LABS: B.E. - POC 0.6 mmol/L; Glucose - POC 142 mg/dl (70-99); HCO3 - POC 26 mmol/L (21-28); Hematocrit - POC 32 % PCV (42-52); Hemodilution- POC Yes; Hemoglobin Calculated - POC 10.8; Ionized Calcium - POC 1.08 mmol/L (1.15-1.33); Lactate - POC 0.51 mmol/L (0.36-0.75); PCO2 - POC 44 mmHg (35-48); PO2 - POC 400 mmHg (83-108); Potassium - POC 5.4 mmol/L (3.5-5.1); Sodium - POC 141 mmol/L (136-145); Specimen Type - POC Arterial; pH - POC 7.38 (7.35-7.45)
[2024-07-29 09:57] LABS: ACT+ - POC 115 Seconds (82-134)
[2024-07-29 10:20] LABS: B.E. - POC 0.4 mmol/L; Glucose - POC 120 mg/dl (70-99); HCO3 - POC 24 mmol/L (21-28); Hematocrit - POC 31 % PCV (42-52); Hemodilution- POC Yes; Hemoglobin Calculated - POC 10.7; Ionized Calcium - POC 1.38 mmol/L (1.15-1.33); Lactate - POC 0.68 mmol/L (0.36-0.75); PCO2 - POC 34 mmHg (35-48); PO2 - POC 529 mmHg (83-108); Potassium - POC 4.7 mmol/L (3.5-5.1); Sodium - POC 144 mmol/L (136-145); Specimen Type - POC Arterial; pH - POC 7.45 (7.35-7.45)
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
[2024-07-29 10:52] LABS: Glucose - Point of Care 140 mg/dl (70-99)
[2024-07-29 10:58] LABS: Mixed Venous O2 Saturation 75.9 %
[2024-07-29 11:01] LABS: B.E. -2.3 mmol/L; HCO3 22.5 mmol/L (21-28); Ionized Calcium 1.28 mMOL/L (1.15-1.33); PCO2 38 mmHg (35-48); PO2 102 mmHg (83-108); Potassium 4.4 mMOL/L (3.5-5.1); Sodium 136 mMOL/L (136-145); pH 7.38 (7.35-7.45)
[2024-07-29 11:10] LABS: Blood Urea Nitrogen 18 mg/dl (9-20); Estimated Creatinine Clearance 93 ml/min; Glucose 141 mg/dl (70-99); Magnesium 2.5 mg/dl (1.6-2.3)
--- NOTE | 2024-07-29 11:11 | PTCARENOTE ---
Received pt from the CVOR into 2262, sinus rhythm on tele w epicardial AV wires for backup, HR 58-62, all lines leveled and zeroed, BP via left radial anita 100/60, Right IJ cordis w swan floated to 49 CI 1.98 CO 3.91 CVP 7 PAP 32/14. #7.5 ETT/ 23cm
right lip VENT SETTINGS: 40/500/14/+5, POX 95%. CT x2 w red drainage, dudley draining yellow.
DRIPS: Precedex 0.5 mcg/kg/hr
Levophed 2mcg/min
Insulin titrated per glycemic
[2024-07-29 11:13] LABS: INR 1.26
[2024-07-29 11:14] LABS: APTT 26.7 Sec (23.4-35.0)
[2024-07-29] MEDS: ANCEF 10 IV ×2 (11:39)
[2024-07-29] MEDS: NSS 500 IV (11:39)
[2024-07-29] MEDS: LR 250 ML IV ×2 (11:39→12:28)
[2024-07-29 11:42] LABS: Hematocrit 34.6 % (39.0-52.0); Hemoglobin 11.9 g/dL (13.0-18.0); Platelet Count 112 10^3/uL (130-400)
[2024-07-29 11:49] LABS: Glucose - Point of Care 152 mg/dl (70-99)
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
--- NOTE | 2024-07-29 12:27 | PTCARENOTE ---
CI 1.[address] RAHAT made aware. Instructed to administer 250ml LR bolus.
[2024-07-29 12:48] LABS: Glucose - Point of Care 108 mg/dl (70-99)
--- NOTE | 2024-07-29 13:12 | W.PN.UPDATE ---
Update Note
Progress Note Update
IV fluids: 1100
Crystalloid: 1200
U.O.: 650
UF: 1400
Blood: None
Wires: A+V
Inotropes: none
Pressors: levophed
Sedatives: precedex
NEURO: sedated on precedex, pupils +Xmm B/L
RESP: #8OT @23cm> 14/500/40/5 Lungs clear B/L. 2 mediastinal (20cc on arrival) chest tubes to -20cm suction. Sanguineous drainage
CV: RRR +S1, S2, no S3, no rub, no murmur. Dermabond to median sternotomy. RIJ w/[place] locked @ 47cm.
ABD: round, soft, no BS
EXT: no edema, +2/4 DP pulses B/L, no femoral bruit, right radial A-line intact
: [place]e with clear yellow urine
A/P: POD #0 s/p Radical mitral valve repair [triangular resection of the P2 flail segment, primary repair with 5-0 prolene figure of eight sutures, 2 pairs of CV-4 [place]-Jordin cords placed to each papillary muscle head anchoring P2, 38 mm band
annuloplasty]
ELE: EF 50%
- wean and extubate
- Monitor CT and urine output
- Follow up labs and CXR
- Wean levophed for maps >65/SBP goal 90-130
- Will start ASA tonight
- EKG
- Cards consulted
# acute surgical blood loss anemia-expected
- trend CBC
# Hyperlipidemia
- resume statin when tolerating PO
--- NOTE | 2024-07-29 13:45 | PTCARENOTE ---
pt awake, following simple commands, placed on CPAP wean by RT.
[2024-07-29 13:48] LABS: Glucose - Point of Care 78 mg/dl (70-99)
--- NOTE | 2024-07-29 14:15 | PTCARENOTE ---
pt w RR 8-10 on CPAP wean. CO2 [address] RAHAT, pt to remain on CPAP wean until RR is sustained at 12-15/min. Will continue to monitor.
[2024-07-29 14:22] LABS: B.E. - POC -0.1 mmol/L; Blood Urea Nitrogen - POC 20 mg/dl (3-120); Chloride - POC 108 mmol/L (96-111); Creatinine - POC 1.02 mg/dl (0.3-1.0); Glucose - POC 111 mg/dl (70-99); HCO3 - POC 27 mmol/L (21-28); Hematocrit - POC 37 % PCV (42-52); Hemodilution- POC Yes; Hemoglobin Calculated - POC 12.7; Ionized Calcium - POC 1.32 mmol/L (1.15-1.33); Lactate - POC 2.39 mmol/L (0.36-0.75); O2 Saturation %Calculated-POC 96.8 % (94-98); PCO2 - POC 51 mmHg (35-48); PO2 - POC 97 mmHg (83-108); Potassium - POC 3.9 mmol/L (3.5-5.1); Sodium - POC 146 mmol/L (136-145); Specimen Type - POC Arterial; pH - POC 7.32 (7.35-7.45)
[2024-07-29 14:52] LABS: Hematocrit 36.3 % (39.0-52.0); Hemoglobin 12.3 g/dL (13.0-18.0); Platelet Count 130 10^3/uL (130-400)
[2024-07-29 15:03] LABS: Glucose - Point of Care 115 mg/dl (70-99)
--- NOTE | 2024-07-29 15:11 | PTCARENOTE ---
repeat labs drawn and sent, CHG bath completed.
[2024-07-29] MEDS: TYLENOL PO (15:12)
--- NOTE | 2024-07-29 15:47 | PTCARENOTE ---
pt extubated to 6L NC at 15:45. Pox 96%. Achieved 500 on IS.
[2024-07-29 16:19] LABS: Glucose - Point of Care 109 mg/dl (70-99)
[2024-07-29] MEDS: ZOFRAN 4 MG IV (16:46)
[2024-07-29] MEDS: LOW STRENGTH ASPIRIN 81 MG PO (17:06)
[2024-07-29] MEDS: OFIRMEV 100 IV (17:06)
[2024-07-29] MEDS: NEURONTIN PO (17:06)
[2024-07-29] MEDS: PACERONE PO ×2 (17:07→22:09)
[2024-07-29 17:11] LABS: Glucose - Point of Care 107 mg/dl (70-99)
[2024-07-29] MEDS: ANCEF 5 IV (18:08)
[2024-07-29 18:15] LABS: Glucose - Point of Care 101 mg/dl (70-99)
[2024-07-29] MEDS: REGLAN 10 MG IV (18:59)
--- NOTE | 2024-07-29 20:00 | PTCARENOTE ---
assumed care of pt from previous RN. pt A&Ox4, resting in bed s/p CVOR. R IJ cordis w/ swan floated to 49cm. L radial a-line. all lines leveled, zeroed, flushed. SR on tele-monitor. temp epicardial A/V wires w/ backup settings DDD 30/10/10/0.4/2.
CTx2 (mediastinal x2) to -20cm wall suction, draining sanguineous drainage. no air leaks noted. abd s/n, hypoactive BS. dudley catheter draining clear, yellow urine. all surgical sites stable, CDI. PIV intact. see worklist for complete nursing
assessment, interventions, gtt titrations, VS, and I&Os.
[2024-07-29] MEDS: SENOKOT-S PO (20:07)
[2024-07-29 20:15] LABS: Glucose - Point of Care 105 mg/dl (70-99)
[2024-07-29] MEDS: DILAUDID 0.25 MG IV (20:20)
[2024-07-29 22:07] LABS: Glucose - Point of Care 136 mg/dl (70-99)
[2024-07-29] MEDS: NEURONTIN 100 MG PO (22:09)
[2024-07-29] MEDS: TYLENOL 1000 MG PO (22:09)
[2024-07-30] VITALS (28 sets, daily range): BP systolic 100–136; BP diastolic 64–72; PULSE 63; O2SAT 68–94; BMI 23.1
--- NOTE | 2024-07-30 | PTCARENOTE ---
assessment remains unchanged. VSS. CT drainage WNL. U/O >0.5ml/kg/h. c/o pain, see MAY.
[2024-07-30 00:09] LABS: Glucose - Point of Care 111 mg/dl (70-99)
[2024-07-30] MEDS: ROXICODONE 5 MG PO ×4 (00:12→17:15)
[2024-07-30 01:56] LABS: Glucose - Point of Care 114 mg/dl (70-99)
[2024-07-30] MEDS: ANCEF 5 IV ×2 (02:58→10:03)
[2024-07-30 03:13] LABS: Mixed Venous O2 Saturation 76.8 %
[2024-07-30 03:21] LABS: Hematocrit 33.7 % (39.0-52.0); Hemoglobin 11.5 g/dL (13.0-18.0); Mean Corp Hgb Conc. 34.1 g/dL (33.0-37.0); Mean Corpuscular Hgb 32.9 pg (27.0-31.0); Mean Corpuscular Volume 96.3 fL (80.0-94.0); Mean Platelet Volume 11.5 fL (7.4-10.4); Platelet Count 99 10^3/uL (130-400); Red Cell Dist. Width 12.9 % (11.5-14.5); White Blood Cell Count 12.5 10^3/uL (4.8-10.8)
[2024-07-30] MEDS: DILAUDID 0.25 MG IV ×3 (03:40→23:05)
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
--- NOTE | 2024-07-30 03:45 | PTCARENOTE ---
no acute changes. VSS. CT drainage WNL. U/O >0.5ml/kg/h. AM labs collected and sent. EKG completed.
[2024-07-30 03:46] LABS: Glucose - Point of Care 115 mg/dl (70-99)
[2024-07-30 03:51] LABS: Blood Urea Nitrogen 22 mg/dl (9-20); Calcium 8.7 mg/dl (8.4-10.2); Carbon Dioxide 24 mmol/L (22-30); Chloride 108 mmol/L (98-107); Estimated Creatinine Clearance 84 ml/min; Glucose 116 mg/dl (70-99); Potassium 4.7 mmol/L (3.5-5.1); Sodium 140 mmol/L (135-145); eGFR > 60.00
[2024-07-30] MEDS: TYLENOL 1000 MG PO ×3 (05:54→22:07)
[2024-07-30 05:58] LABS: Glucose - Point of Care 108 mg/dl (70-99)
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
--- NOTE | 2024-07-30 07:54 | W.PN.ANS.POP ---
Anesthesia Post Operative
- Anesthesia Post Op Note
Vital Signs Stable-See Nursing Note: Yes
Airway Patent: Yes
Adequate Pain Control: Yes
Change in Mental Status: No
Current Postoperative Nausea & Vomiting: No
Anesthesia Complications: No
General Anesthetic Recall: No
Unplanned Admission: No
Post Op Hydration Adequate: Yes
[2024-07-30] MEDS: PLAVIX 75 MG PO (08:06)
[2024-07-30 08:07] LABS: Glucose - Point of Care 131 mg/dl (70-99)
[2024-07-30] MEDS: LOPRESSOR 12.5 MG PO ×2 (08:07→19:32)
[2024-07-30] MEDS: SENOKOT-S 1 TABLET PO ×2 (08:08→19:32)
[2024-07-30] MEDS: FEOSOL 325 MG PO (08:08)
[2024-07-30] MEDS: PROTONIX 40 MG PO (08:08)
[2024-07-30] MEDS: MAGNESIUM OXIDE 500 MG PO ×2 (08:08→19:32)
[2024-07-30] MEDS: CRESTOR 20 MG PO (08:08)
[2024-07-30] MEDS: LOW STRENGTH ASPIRIN 81 MG PO (08:08)
[2024-07-30] MEDS: NEURONTIN 100 MG PO ×3 (08:08→22:07)
[2024-07-30] MEDS: LIDOCAINE 4% PATCH 1 PATCH TOPICAL (08:09)
[2024-07-30] MEDS: BACTROBAN 2% OINTMENT 1 APPLIC NASAL ×2 (08:10→19:33)
--- NOTE | 2024-07-30 08:28 | PTCARENOTE ---
Patient received from behavior specialist resting oob in chair, AAO X 3, c/o moderate sternal discomfort, medicated for such (see MAR). NSR via cm, SaO2 @ 94% on 2lnc. RIJ Cordis w/kvo infusing. Epicardial A+V pacing wires to pulse generator set to back up
rate 30bpm, no spikes noted. All procedural sites stable. Mediastinal chest tubes x 2, Y-connected to one pleurevac, no leaks or crepitus noted on -20cm suction. Forte d/c'd 0600, DTV, denies urge. Patient updated to plan of care for the day, in
agreement. See work list for full assessment and interventions performed.
[2024-07-30] MEDS: PACERONE 200 MG PO ×3 (08:31→22:07)
[2024-07-30] MEDS: VITAMIN C 500 MG PO (08:31)
[2024-07-30] MEDS: NSS IV (09:16)
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
[2024-07-30 09:59] LABS: Glucose - Point of Care 113 mg/dl (70-99)
--- NOTE | 2024-07-30 12:00 | PTCARENOTE ---
received patient from previous RN. Pt OOB in chair, resting comfortably. AAOX3. reports pain /10- see mar. Sr on telemetry heart rate 70-80s. A/V wires set DDD rate 30, ma 10. + pulses, no edema. pt on room air, sat 92%. lung sounds diminished in
bases. active bowel sounds. due to void- denies urge. Right IJ cordis infusing KVO. surgical sites CDI. see worklist for full nursing assessment. pt updated on plan of care.
--- NOTE | 2024-07-30 12:50 | CM ---
CM following for DC planning needs.
Pt. is POD#[address] Surgery[address]
Reviewed initial assessment. Pt. from 2 story home w/ spouse, (0 TERI). Functionally, patient is indep. w/ ADLs, mobility without the use of any assisted device.
Antic. DC plan is for home w/ CT Transitional Care RN.
CM to follow.
[2024-07-30] MEDS: FERRLECIT 110 MG IV (14:02)
--- NOTE | 2024-07-30 16:11 | PTCARENOTE ---
pt assisted back to bed with 1 assist. chest tube dressings changed. pt 90% on room air. placed on 2L nasal cannula, sat 95%. no further changes in assessment noted.
--- NOTE | 2024-07-30 20:00 | PTCARENOTE ---
Resumed care of pt laying in bed AAOx3 with at bedside. Pt reports sternal pain 11/09, Pain medication administered as ordered, see MAY. HR in the 70's in NSR on the monitor. Temp pacer in place with A&V wires set to DDD, 29/01. POX 93% on 2
LO2 NC. Lungs dec @ bases. Shallow breaths due to pain. Deep breathing encouraged. Hypo bowel. Pt with some nausea, poor appetite for dinner. Sternal wound with surgical glue intact open to air. Right lateral chest incision open to air with surg
glue intact. Mediastinal chest tube x2 in place. Pt using urinal as needed. Right IJ Cordis in place with NSS@10ml/hr. Right forarm int capped. Pt positioned per comfort. Will continue to monitor.
[2024-07-31] VITALS (23 sets, daily range): BP systolic 101–132; BP diastolic 59–77; PULSE 77; O2SAT 91–92; BMI 23.4
[2024-07-31] MEDS: ZOFRAN 4 MG IV (02:31)
[2024-07-31 04:41] LABS: Hematocrit 34.1 % (39.0-52.0); Hemoglobin 11.5 g/dL (13.0-18.0); Mean Corp Hgb Conc. 33.7 g/dL (33.0-37.0); Mean Corpuscular Hgb 32.8 pg (27.0-31.0); Mean Corpuscular Volume 97.2 fL (80.0-94.0); Mean Platelet Volume 11.9 fL (7.4-10.4); Platelet Count 89 10^3/uL (130-400); Red Blood Cell Count 3.51 10^6/uL (4.70-6.10); Red Cell Dist. Width 13.2 % (11.5-14.5); White Blood Cell Count 14.7 10^3/uL (4.8-10.8)
[2024-07-31 04:52] LABS: Blood Urea Nitrogen 19 mg/dl (9-20); Calcium 8.6 mg/dl (8.4-10.2); Carbon Dioxide 29 mmol/L (22-30); Chloride 99 mmol/L (98-107); Estimated Creatinine Clearance 95 ml/min; Glucose 144 mg/dl (70-99); Magnesium 1.9 mg/dl (1.6-2.3); Potassium 4.7 mmol/L (3.5-5.1); Sodium 134 mmol/L (135-145); eGFR > 60.00
[2024-07-31] MEDS: TYLENOL 1000 MG PO ×3 (05:39→21:01)
--- NOTE | 2024-07-31 05:46 | PTCARENOTE ---
PT awake intermittently t/o the night. PRN medications administered as needed. [facility] bath provided this am. PT OOB to chair. Pt tolerated well. Mediastinal chest tubes x2 in place. Temp pacer remains in place. HR remains in NSR T/O the night. Voiding
in urinal without difficulty. POX 93%-95% on 2 LO2 NC. Vital signs stable. NO issues to report. Call pulido in reach. Will continue to monitor.
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
[2024-07-31] MEDS: LIDOCAINE 4% PATCH 1 PATCH TOPICAL (07:42)
[2024-07-31] MEDS: BACTROBAN 2% OINTMENT 1 APPLIC NASAL ×2 (07:42→19:44)
[2024-07-31] MEDS: FEOSOL 325 MG PO (07:42)
[2024-07-31] MEDS: MAGNESIUM OXIDE 500 MG PO ×2 (07:43→19:44)
[2024-07-31] MEDS: LOW STRENGTH ASPIRIN 81 MG PO (07:43)
[2024-07-31] MEDS: NEURONTIN 100 MG PO ×3 (07:43→21:01)
[2024-07-31] MEDS: ROXICODONE 5 MG PO ×4 (07:43→21:01)
[2024-07-31] MEDS: LOPRESSOR 12.5 MG PO ×2 (07:43→19:44)
[2024-07-31] MEDS: PACERONE 200 MG PO ×3 (07:43→21:01)
[2024-07-31] MEDS: CRESTOR 20 MG PO (07:43)
[2024-07-31] MEDS: SENOKOT-S 1 TABLET PO ×2 (07:43→19:44)
[2024-07-31] MEDS: VITAMIN C 500 MG PO (07:43)
[2024-07-31] MEDS: PROTONIX 40 MG PO (07:44)
--- NOTE | 2024-07-31 09:51 | W.PN.UPDATE ---
Update Note
Progress Note Update
No pacing required since surgery. 2 atrial and one bipolar V- wire removed without difficulty. Bedrest x 1 hour. VS q15min x 4
--- NOTE | 2024-07-31 10:58 | CM ---
CM following for DC planning needs.
Pt. is POD#[address] Surgery.
Met w/ patient at bedside, patient feels well.
Reviewed DC plan- antic. home w/ CT Transitional care RN once stable.
Will follow.
--- NOTE | 2024-07-31 11:18 | PTCARENOTE ---
mediastinal chest tubes dced per orders. pt tolerated well. no changes in assessment noted.
--- NOTE | 2024-07-31 11:22 | PTCARENOTE ---
Addendum entered by Lyssa Felix RN 07/31/24 11:24:
time 0700
Original Note:
received report from previous RN. Pt OOB in chair, resting comfortably. AAOX3. mild pain noted. SR on telemetry heart rate in 60-70s. pulses palpable, no edema. pt on 2L nasal cannula, sat 94%. lung sounds diminished in bases, shallow breathing.
active bowel sounds, denies nausea. voiding in urinal. surgical sites CDI. right IJ cordis infusing KVO. 2 mediastinal chest tubes to -20 suction, small amount of serosanginous fluid. AV wires intact. pt updated on plan of care. see worklist for
full nursing assessment and interventions.
[2024-07-31] MEDS: NSS 500 IV (11:58)
[2024-07-31] MEDS: FERRLECIT 110 MG IV (13:30)
--- NOTE | 2024-07-31 13:39 | PTCARENOTE ---
pt OOB in chair for lunch. ambulated in hallway independently. remains on 2L nasal cannula, sat 94%. no further changes in assessment noted
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
--- NOTE | 2024-07-31 16:00 | PTCARENOTE ---
no changes in assessment noted.
--- NOTE | 2024-07-31 20:54 | PTCARENOTE ---
Received patient from Lyssa RN; AAOx3, responds spontaneously to RN and follows commands; Peripheral vision loss from prior CVA; Forgetful at times; VSS; SR with SB on monitor; +2 DP and radial pulses; Lungs diminished at bases; SpO2 91-93% on 2L
NC; Dry, harsh, and non-productive cough; Lungs diminished at bases; IS 1250 ml; Hypoactive BS, poor appetite; Patient urinating in urinal; Surgical sites intact; PIV x1 - #18 RAC; RIJ Cordis with KVO infusing; Patient ambulating in hallways with
RN; See nursing documentation for further details
[2024-08-01] VITALS (13 sets, daily range): BP systolic 97–135; BP diastolic 57–73; PULSE 65; O2SAT 61–95; BMI 23.6
--- NOTE | 2024-08-01 | PTCARENOTE ---
pt received from previous RN, oriented in bed. SB/SR on the monitor, HR 50-60s. SBP 100s. palpable pulses. pt on 3LNC, 95-96% POX. lungs diminished at bases. IS encouraged. 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 pt abdomen s/n, denies n/v. +BS. voids. sternal
incision SOPHY, approximated. chest tube site c/d/i. R axillary site c/d/i. RIJ cordis maintained. PIV. see worklist for VS, I&O, and assessment.
--- NOTE | 2024-08-01 04:35 | PTCARENOTE ---
pt VSS, no changes in assessment. resting between care. lab work drawn.
[2024-08-01 04:56] LABS: Hemoglobin 10.2 g/dL (13.0-18.0); Mean Corp Hgb Conc. 32.9 g/dL (33.0-37.0); Mean Corpuscular Hgb 32.4 pg (27.0-31.0); Mean Corpuscular Volume 98.4 fL (80.0-94.0); Mean Platelet Volume 12.3 fL (7.4-10.4); Platelet Count 74 10^3/uL (130-400); Red Blood Cell Count 3.15 10^6/uL (4.70-6.10); Red Cell Dist. Width 13.1 % (11.5-14.5); White Blood Cell Count 12.3 10^3/uL (4.8-10.8)
[2024-08-01 05:10] LABS: Blood Urea Nitrogen 20 mg/dl (9-20); Carbon Dioxide 30 mmol/L (22-30); Chloride 99 mmol/L (98-107); Estimated Creatinine Clearance 86 ml/min; Glucose 112 mg/dl (70-99); Magnesium 2.1 mg/dl (1.6-2.3); Potassium 4.7 mmol/L (3.5-5.1); Sodium 133 mmol/L (135-145); eGFR > 60.00
[2024-08-01] MEDS: ROXICODONE 5 MG PO ×2 (05:33→19:40)
[2024-08-01] MEDS: TYLENOL 1000 MG PO ×3 (05:33→21:04)
--- NOTE | 2024-08-01 06:26 | PTCARENOTE ---
PA aware of lab results. pt OOB to chair w/ minimal assist. pt given scheduled Tylenol and PRN Roxicodone for pain. voids in urinal.
--- NOTE | 2024-08-01 07:40 | PTCARENOTE ---
A-fib on monitor and VSS; CT SCHOOL RESOURCE OFFICER updated and Amiodarone bolus and drip ordered; awaiting pharmacy to deliver.
[2024-08-01] MEDS: CORDARONE 103 MG IV ×2 (07:52→12:12)
[2024-08-01] MEDS: CORDARONE 518 MG IV (08:05)
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
[2024-08-01] MEDS: PROTONIX 40 MG PO (08:13)
[2024-08-01] MEDS: PACERONE 200 MG PO ×2 (08:13→15:38)
[2024-08-01] MEDS: SENOKOT-S 1 TABLET PO ×2 (08:13→19:27)
[2024-08-01] MEDS: FEOSOL 325 MG PO (08:13)
[2024-08-01] MEDS: VITAMIN C 500 MG PO (08:13)
[2024-08-01] MEDS: CRESTOR 20 MG PO (08:13)
[2024-08-01] MEDS: NEURONTIN 100 MG PO ×3 (08:13→21:04)
[2024-08-01] MEDS: MAGNESIUM OXIDE 500 MG PO ×2 (08:13→19:27)
[2024-08-01] MEDS: LOW STRENGTH ASPIRIN 81 MG PO (08:13)
[2024-08-01] MEDS: BACTROBAN 2% OINTMENT 1 APPLIC NASAL ×2 (08:14→19:27)
[2024-08-01] MEDS: LIDOCAINE 4% PATCH TOPICAL (08:14)
--- NOTE | 2024-08-01 08:30 | PTCARENOTE ---
Received pt from maintenance supervisor 2nd shift RN; pt AAOx3 and resting comfortably in chair; A-fib on monitor and VSS: RIJ Cordis; Amiodarone infusing see flow sheet for details; Lungs diminished; positive bowel sounds; pt voiding yellow urine; palpable pulses
throughout; no edema noted; all surgical sites C/D/I; see nursing documentation for further details.
[2024-08-01] MEDS: LOPRESSOR PO ×2 (10:16→20:26)
[2024-08-01] MEDS: NSS IV (10:16)
--- NOTE | 2024-08-01 10:17 | PTCARENOTE ---
Pt converted to Sinus Bradycardia at 0940; VSS; CT CLAY PRESS OPERATOR updated and Amiodarone infusing continues.
[2024-08-01] MEDS: ROXICODONE 2.5 MG PO ×2 (11:50→16:35)
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
--- NOTE | 2024-08-01 12:45 | PTCARENOTE ---
Assumed care of pt @ 1130. Pt walking halls w/ therapist, HR increased, back in A fib 110-120's. Denies palpations. BP WNL, 150mg Amio bolus ordered and given. Now resting comfortably in bed. A fib continues, Hr 90-110's. Will continue to monitor.
[2024-08-01] MEDS: FERRLECIT 110 MG IV (13:29)
--- NOTE | 2024-08-01 14:12 | PTCARENOTE ---
Pt converted back to NSR @ 1356. Resting comfortable in bed.
--- NOTE | 2024-08-01 18:00 | PTCARENOTE ---
Assumed care of patient at 1800, patient sitting in chair with no complaints offered, NSR on monitor, on 2L NC. All dressing sites CDI. R IJ cordis in place with amio infusing at ordered rate. VSS, call pulido within reach, report given to oncoming RN.
--- NOTE | 2024-08-01 19:17 | PTCARENOTE ---
VS downloaded from previous shift by this RN.
--- NOTE | 2024-08-01 19:30 | PTCARENOTE ---
assumed care of pt from previous RN. pt A&Ox4, resting in chair at time of assessment. SR on tele-monitor. POX 97% on 2 L NC. abd s/n, +BS. voiding clear, yellow urine in urinal. all surgical sites stable, CDI. R IJ cordis w/ KVO. PIV intact. pt
assisted back to bed after assessment by this RN. plan of care discussed w/ pt, pt in agreement. see worklist for complete nursing assessment, interventions, VS, and I&Os.
[2024-08-01] MEDS: PACERONE PO (22:47)
[2024-08-02] VITALS (13 sets, daily range): BP systolic 106–123; BP diastolic 52–78; PULSE 91; O2SAT 98; BMI 23.4
--- NOTE | 2024-08-02 | PTCARENOTE ---
assessment remains unchanged. VSS.
--- NOTE | 2024-08-02 04:00 | PTCARENOTE ---
no acute changes. VSS. AM labs collected and sent.
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
[2024-08-02 04:21] LABS: Hematocrit 29.4 % (39.0-52.0); Hemoglobin 9.9 g/dL (13.0-18.0); Mean Corp Hgb Conc. 33.7 g/dL (33.0-37.0); Mean Corpuscular Hgb 32.8 pg (27.0-31.0); Mean Corpuscular Volume 97.4 fL (80.0-94.0); Mean Platelet Volume 11.6 fL (7.4-10.4); Platelet Count 86 10^3/uL (130-400); Red Blood Cell Count 3.02 10^6/uL (4.70-6.10); Red Cell Dist. Width 12.9 % (11.5-14.5); White Blood Cell Count 10.3 10^3/uL (4.8-10.8)
[2024-08-02 04:43] LABS: Blood Urea Nitrogen 16 mg/dl (9-20); Calcium 8.2 mg/dl (8.4-10.2); Carbon Dioxide 31 mmol/L (22-30); Chloride 97 mmol/L (98-107); Estimated Creatinine Clearance 108 ml/min; Glucose 113 mg/dl (70-99); Magnesium 2.3 mg/dl (1.6-2.3); Potassium 4.6 mmol/L (3.5-5.1); Sodium 135 mmol/L (135-145); eGFR > 60.00
[2024-08-02] MEDS: TYLENOL 1000 MG PO ×3 (06:23→23:12)
--- NOTE | 2024-08-02 08:00 | PTCARENOTE ---
pt received from previous RN, oriented in bed. SR on the monitor, HR 60-70s. SBP 110s. palpable pulses. pt on RA, 91-92% POX. lungs diminished at bases. IS encouraged. pt abdomen s/n, denies n/v. +BS. voids. sternal incision SOPHY, approximated. chest
tube site BRAKE LININGS COATER. R axillary site BRAKE LININGS COATER. RIJ cordis maintained. amiodarone gtt running as ordered. PIV. see worklist for VS, I&O, and assessment.
[2024-08-02] MEDS: VITAMIN C 500 MG PO (08:04)
[2024-08-02] MEDS: PROTONIX 40 MG PO (08:04)
[2024-08-02] MEDS: NEURONTIN 100 MG PO ×3 (08:04→23:12)
[2024-08-02] MEDS: MAGNESIUM OXIDE 500 MG PO ×2 (08:04→20:16)
[2024-08-02] MEDS: TOPROL XL 25 MG PO (08:04)
[2024-08-02] MEDS: PACERONE 200 MG PO ×3 (08:04→23:12)
[2024-08-02] MEDS: LIDOCAINE 4% PATCH 1 PATCH TOPICAL (08:04)
[2024-08-02] MEDS: CRESTOR 20 MG PO (08:04)
[2024-08-02] MEDS: FEOSOL 325 MG PO (08:04)
[2024-08-02] MEDS: SENOKOT-S 1 TABLET PO ×2 (08:04→20:17)
[2024-08-02] MEDS: LOW STRENGTH ASPIRIN 81 MG PO (08:07)
--- NOTE | 2024-08-02 09:36 | PTCARENOTE ---
pt converted to afib @~0850, POONAM Dempsey and Dr. Sanchez aware. SBP 110s. 93% on RA. OOB in chair. at bedside.
[2024-08-02] MEDS: CORDARONE 518 MG IV (11:42)
[2024-08-02] MEDS: CORDARONE 103 MG IV ×2 (11:46→14:53)
--- NOTE | 2024-08-02 12:00 | PTCARENOTE ---
pt VSS. pt converted to SR @ 1027, POONAM Dempsey aware. Amio gtt continued. stairs completed w/ CR. 2V CXR completed.
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
[2024-08-02] MEDS: NSS 500 IV (13:07)
--- NOTE | 2024-08-02 15:26 | PTCARENOTE ---
pt VSS, resting between care. pt converted to a-fib @1450, amiodarone bolus given as ordered @1453. oral hygiene performed. RIJ cordis dressing changed.
[2024-08-02] MEDS: ROXICODONE 5 MG PO (16:35)
[2024-08-02] MEDS: FLEXERIL 5 MG PO (20:23)
--- NOTE | 2024-08-02 20:30 | PTCARENOTE ---
Assumed care of patient. Walking rounds completed with previous RN. Pt assessed while he was sitting in the chair. Pt alert and oriented x4. Pt rates sternal pain 2/10-see MAR. Pt denies shortness of breath and nausea. RUDOLPH with equal strength
throughout. NSR on tele with rates in the 60s. BP 106/61. Heart tones audible. Bilateral radial and DP pulses palpable. No edema noted. POX 92% on RA. Lungs diminished in the bases. IS encouraged-1000mL achieved. No cough noted. Abdomen soft
nontender. +BS. Pt reports passing gas. Pt voiding adequate amounts of clear yellow urine, reports no issues. Sternal incision approximated with skin glue, SOPHY. Right axillary incision approximated with skin glue, PRODUCTION CREW SUPERVISOR. Old chest tube sites dressing
removed, SOPHY. Right IJ cordis intact infusing KVO and Amio gtt at 0.5mg/min. PIV intact. Pt bathed with CHG wipes. See MAR for medication administration. See worklist for complete nursing assessment. Plan of care reviewed and patient in agreement.
--- NOTE | 2024-08-02 23:20 | PTCARENOTE ---
Pt reassessed. NSR on tele with rates in the 60s. BP 116/61. POX 92%. Surgical sites stable. Pt resting between care. No acute changes from previous assessment.
[2024-08-03 03:12] VITALS: BP 120/63
[2024-08-03 03:15] VITALS: BP 120/63
[2024-08-03] MEDS: ROXICODONE 2.5 MG PO ×2 (03:20→15:26)
--- NOTE | 2024-08-03 03:20 | PTCARENOTE ---
Pt reassessed. SB in the 50s. BP 120/63. POX 92% on RA. Surgical sites stable. Pt c/o 06/09 sternal & back pain, see MAR. No other acute changes. Labs drawn and sent.
[2024-08-03 04:04] LABS: Hematocrit 30.1 % (39.0-52.0); Hemoglobin 10.1 g/dL (13.0-18.0); Mean Corp Hgb Conc. 33.6 g/dL (33.0-37.0); Mean Corpuscular Hgb 32.8 pg (27.0-31.0); Mean Corpuscular Volume 97.7 fL (80.0-94.0); Mean Platelet Volume 11.2 fL (7.4-10.4); Platelet Count 120 10^3/uL (130-400); Red Blood Cell Count 3.08 10^6/uL (4.70-6.10); Red Cell Dist. Width 13.3 % (11.5-14.5); White Blood Cell Count 8.6 10^3/uL (4.8-10.8)
[2024-08-03 04:20] LABS: Blood Urea Nitrogen 13 mg/dl (9-20); Calcium 8.4 mg/dl (8.4-10.2); Carbon Dioxide 33 mmol/L (22-30); Chloride 100 mmol/L (98-107); Estimated Creatinine Clearance 86 ml/min; Glucose 131 mg/dl (70-99); Potassium 4.1 mmol/L (3.5-5.1); Sodium 137 mmol/L (135-145); eGFR > 60.00
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
[2024-08-03 06:00] VITALS: BMI 23.3
[2024-08-03] MEDS: TYLENOL 1000 MG PO ×2 (06:42→13:35)
[2024-08-03 07:45] VITALS: BP 100/56
[2024-08-03 07:50] VITALS: BP 100/56
[2024-08-03] MEDS: ELIQUIS 5 MG PO (07:51)
[2024-08-03] MEDS: CRESTOR 20 MG PO (07:51)
[2024-08-03] MEDS: SENOKOT-S 1 TABLET PO (07:51)
[2024-08-03] MEDS: PROTONIX 40 MG PO (07:51)
[2024-08-03] MEDS: LOW STRENGTH ASPIRIN 81 MG PO (07:51)
[2024-08-03] MEDS: PACERONE 200 MG PO (07:52)
[2024-08-03] MEDS: NEURONTIN 100 MG PO ×2 (07:52→15:26)
[2024-08-03] MEDS: MAGNESIUM OXIDE 500 MG PO (07:52)
[2024-08-03] MEDS: FEOSOL 325 MG PO (07:52)
[2024-08-03] MEDS: VITAMIN C 500 MG PO (07:52)
[2024-08-03] MEDS: TOPROL XL PO (07:56)
[2024-08-03] MEDS: LIDOCAINE 4% PATCH TOPICAL ×2 (07:56→08:02)
--- NOTE | 2024-08-03 08:00 | PTCARENOTE ---
Assumed care of patient at 0645. Assessment completed and documented in shift assessment.
Patient is pleasant, AAOX4 and cooperative with care. OOB to chair, maintaining sternal precautions. Baseline L vision field deficit from prior CVA, otherwise neurologically intact. No pain reported. RA, lungs coarse throughout 92% on RA. SB on
monitor, discussed metoprolol dosing (hold per PA). Remains on Amio gtt at 0.5, infusing through R IJ cordis. R FA IV patent. No edema, + pulses. Sternal, R Axillary and prior Chest Tube site SOPHY. All incision/puncture sites approximated, WNL. Round
abdomen, + BS and + flatus. Decreased appetite however ordered breakfast. Voiding in urinal.
[2024-08-03] MEDS: NSS IV (09:58)
[2024-08-03] MEDS: TOPROL XL 25 MG PO (10:01)
[2024-08-03 10:05] VITALS: BP 111/53
--- NOTE | 2024-08-03 10:05 | PTCARENOTE ---
Patient back in A-Fib 80's-100's. Amio gtt off per cardiothoracic team. Metoprolol PO given.
[2024-08-03 12:10] VITALS: BP 109/60
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
--- NOTE | 2024-08-03 14:23 | W.[place]-PDMP ---
[place]-PDMP
-
Checked the [place]- Prescription Drug Monitoring Program website, no red flags identified; safe to proceed with prescription.
== END 2024-08-03 15:59 | disposition home or self-care (01) | DRG 219 ==
LOC: CVICU 04:57
PROVIDERS: Anesthesiology; Physician Assistant; Physician Assistant Medical; ADMITTING PHYSICIAN Thoracic Surgery (Cardiothoracic Vascular Surgery); CONSULT PHYSICIAN Internal Medicine Critical Care Medicine; FAMILY PHYSICIAN Family Medicine
PROC: 02BG0ZZ Excision of Mitral Valve, Open Approach (ICD-10-PCS; 2024-07-29)
PROC: 5A1221Z Performance of Cardiac Output, Continuous (ICD-10-PCS; 2024-07-29)
PROC: 02L70CK Occlusion of Left Atrial Appendage with Extraluminal Device, Open Approach (ICD-10-PCS; 2024-07-29)
PROC: B24BZZ4 Ultrasonography of Heart with Aorta, Transesophageal (ICD-10-PCS; 2024-07-29)
PROC: 02UG0JZ Supplement Mitral Valve with Synthetic Substitute, Open Approach (ICD-10-PCS; 2024-07-29)
DX: I34.0 Nonrheumatic mitral (valve) insufficiency (principal); I51.1 Rupture of chordae tendineae, not elsewhere classified; D62 Acute posthemorrhagic anemia; I31.0 Chronic adhesive pericarditis; I50.42 Chronic combined systolic (congestive) and diastolic (congestive) heart failure; J98.11 Atelectasis; Q21.12 Patent foramen ovale; I69.398 Other sequelae of cerebral infarction; H53.8 Other visual disturbances; I25.10 Atherosclerotic heart disease of native coronary artery without angina pectoris; E78.5 Hyperlipidemia, unspecified; N40.0 Benign prostatic hyperplasia without lower urinary tract symptoms; I48.91 Unspecified atrial fibrillation; D69.59 Other secondary thrombocytopenia; Z79.82 Long term (current) use of aspirin; Z79.899 Other long term (current) drug therapy; Z90.2 Acquired absence of lung [part of]; R73.03 Prediabetes; K21.9 Gastro-esophageal reflux disease without esophagitis; E87.70 Fluid overload, unspecified; E86.1 Hypovolemia; R91.1 Solitary pulmonary nodule
CPT/HCPCS: 88305; 93308; 36415; 71045; 71046; 71275; 74174; 80048; 80053; 81003; 81015; 82248; 82330; 82565; 82805; 82810; 82947; 82962; 83735; 84132; 84302; 84520; 85014; 85018; 85025; 85027; 85049; 85610; 85730; 86850; 86900; 86901; 86920; 87070; 87086; 93005; 93312; 93320; 93321; 93325; 93880; 94002; 94010; J2916; Q9967

== ENCOUNTER 2024-08-10 03:22 | Observation (INO) | payer OTHER, MEDICARE, SELFPAY ==
[2024-08-09 21:49] VITALS: BP 144/78
[2024-08-09 22:04] LABS: % Basophils 0.2 % (0-2); % Eosinophils 4.3 % (0-6); % Immature Granulocytes 0.7 % (0-0.5); % Lymphocytes 14.1 % (20.5-51.1); % Monocytes 7.9 % (1.7-9.3); % Neutrophils 72.8 % (42.2-75.2); Absolute Eosinophils 0.4 10^3/uL (0-0.7); Absolute Immature Granulocytes 0.1 10^3/uL (0-0.05); Absolute Lymphocytes 1.2 10^3/uL (1.2-3.4); Absolute Monocytes 0.7 10^3/uL (0.1-0.6); Absolute Neutrophils 6.1 10^3/uL (1.4-6.5); Hematocrit 36.8 % (39.0-52.0); Mean Corp Hgb Conc. 32.6 g/dL (33.0-37.0); Mean Corpuscular Hgb 32.3 pg (27.0-31.0); Mean Corpuscular Volume 99.2 fL (80.0-94.0); Mean Platelet Volume 8.7 fL (7.4-10.4); Nucleated Red Blood Cells % 0 % (-); Platelet Count 356 10^3/uL (130-400); Red Blood Cell Count 3.71 10^6/uL (4.70-6.10); Red Cell Dist. Width 13.2 % (11.5-14.5); White Blood Cell Count 8.3 10^3/uL (4.8-10.8)
[2024-08-09 22:17] LABS: INR 1.08; PT 14.3 Sec (11.4-14.6)
[2024-08-09 22:27] LABS: ALT (SGPT) 55 U/L (0-50); AST (SGOT) 43 U/L (17-59); Albumin 4.2 g/dl (3.5-5.0); Alkaline Phosphatase 85 U/L (38-126); Blood Urea Nitrogen 13 mg/dl (9-20); Carbon Dioxide 28 mmol/L (22-30); Chloride 103 mmol/L (98-107); Glucose 109 mg/dl (70-99); Potassium 4.5 mmol/L (3.5-5.1); Sodium 141 mmol/L (135-145); Total Bilirubin 0.5 mg/dl (0.2-1.3); Total Protein 6.9 g/dl (6.3-8.2); eGFR > 60.00
[2024-08-09 23:58] VITALS: BP 131/73; BMI 24.5
[2024-08-10] VITALS (8 sets, daily range): BP systolic 118–164; BP diastolic 57–95; BMI 22.3
--- NOTE | 2024-08-10 01:11 | ED.GENMED ---
History of Present Illness
General
Chief Complaint: Bowel Problem
Source: patient and family
Time Seen by Provider: 08/10/24 00:09
History of Present Illness
History of Present Illness:
59-year-old male who presents with bright red blood per rectum. Patient states he also had a little bit of epistaxis. His bleeding nose has stopped. Patient states that he was recently started on Eliquis after having a mitral valve repair.
Patient feels otherwise well and states he has been recovering well from the surgery. He had postoperative atrial fibrillation and was started on Eliquis. His significant other states that they are just worried in the light of the blood thinner.
And that his bleeding nose stopped prior to arrival
Past History
Past History
ED Past Medical History: CAD, CVA, Hypercholesterolemia, Valvular disease and Other (Heart murmur)
ED Past Surgical History: Appendectomy, Cardiac (Mitral valve repair) and Other (Partial right lobectomy)
Social History
Tobacco: Non-smoker
Alcohol: Other
Drug: None
Personal:
Living: with family
Employment: Other
Family History
Family History: Adopted
Phy Exam
Physical Exam
Physical Exam:
CONSTITUTIONAL Patient alert and oriented to person, place and time. Well-appearing. Vital signs reviewed.
HEAD atraumatic, normocephalic.
EYES eyelids normal to inspection, Extraocular muscles intact, Conjunctiva normal, Sclera normal.
NECK normal range of motion, Trachea midline, no jugular venous distention.
RESPIRATORY CHEST No respiratory distress noted, Chest expansion equal, Bilateral breath sounds clear. Midline sternotomy scar is intact. No surrounding redness or drainage
CARDIOVASCULAR regular rate and rhythm, Heart sounds normal.
ABDOMEN abdomen nontender, Bowel sounds normal. No distention.
Rectal exam hemorrhoids noted. Does have blood per rectum on exam.
BACK normal inspection, no obvious deformities
UPPER EXTREMITY range of motion normal, Motor strength normal, no cyanosis, no edema.
LOWER EXTREMITY range of motion normal, Motor strength normal, no cyanosis, no edema.
NEURO Speech normal, No focal motor deficits, Beulah coma scale 15, Memory normal, Cranial Nerves intact to screening exam.
SKIN skin warm, dry, and normal in color.
Course
Orders/Labs/Results
Orders:
Orders
08/09/24 21:56
Complete Blood Count/With Diff Urgent
Comprehensive Metabolic Panel Urgent
Prothrombin Time Urgent
Abnormal Lab Results
08/09/24
21:56
RBC 3.71 L 10^6/uL
(4.70-6.10)
Hgb 12.0 L g/dL
(13.0-18.0)
Hct 36.8 L %
(39.0-52.0)
MCV 99.2 H fL
(80.0-94.0)
MCH 32.3 H pg
(27.0-31.0)
MCHC 32.6 L g/dL
(33.0-37.0)
Abs Immat Gran (auto) 0.1 H 10^3/uL
(0-0.05)
Absolute Monos (auto) 0.7 H 10^3/uL
(0.1-0.6)
Immature Gran % 0.7 H %
(0-0.5)
Lymphocytes % 14.1 L %
(20.5-51.1)
Glucose 109 H mg/dl
(70-99)
ALT 55 H U/L
(0-50)
08/09/24 21:56
08/09/24 21:56
Vital Signs
Initial and Last Documented VS:
Initial Vital Signs
Temp Pulse Resp BP Pulse Ox
97.8 F 75 18 144/78 97
08/09/24 21:49 08/09/24 21:49 08/09/24 21:49 08/09/24 21:49 08/09/24 21:49
Last Documented Vital Signs
Temp Pulse Resp BP Pulse Ox
99.1 F 67 22 130/70 96
08/09/24 23:58 08/10/24 01:00 08/10/24 00:45 08/10/24 01:00 08/10/24 01:00
MDM/Problems Addressed
MDM/Problems Addressed:
Acute bright red blood per rectum, therapeutic coagulopathy, acute epistaxis
*Pulse Oximetry
Patient hypoxic: no
*Critical Care Note
Total Time (30-74mins, 75-104mins- exclusive of procedures): Not Applicable
Data Reviewed
Review of Other/Old Records Reveals: Discharge Summary (Recent discharge summary reviewed from July 2024 revealing that the patient was discharged on Eliquis and amiodarone)
Source: patient and spouse
Prescriptions/Medications Considered But Not Given:
Considered Kcentra but patient is stable and hemoglobin is improved from recent admission
Patient Management
Discussion with other providers: Hospitalist and [facility] [employer] (Case discussed with CT surgery who is okay holding Eliquis)
Escalation/DeEscalation of care consider admission/obs:
Case discussed with CT surgery. Admit for observation repeat hemoglobin in the morning. Could be from hemorrhoids. Patient denies melanotic stool. Currently hemodynamically stable and hemoglobin stable
ED Attending Note
-
Portions of this chart may have been created with voice recognition software.� Occasional wrong word or��sound alike� substitutions may have occurred due to the inherent limitations of voice recognition software.
Discharge Plan
Departure
Patient Disposition: Admit
Date of Disposition: 08/10/24
Time of Disposition: 01:12
Admit to: Telemetry
Presentation/result/management discussed w/ accepting MD/DO: Hospitalist
Discharge Problem:
BRBPR (bright red blood per rectum), Acute anterior epistaxis
Prescriptions:
No Action
aspirin 81 mg Tablet,Delayed Release (Dr/Ec)
81 mg PO DAILY
cyanocobalamin (vitamin B-12) 500 mcg Tablet
500 mcg PO DAILY
rosuvastatin 20 mg Tablet
20 mg PO DAILY
Eliquis 5 mg Tablet
5 mg PO BID Qty: 60 1RF
ferrous sulfate [FeroSul] 325 mg (65 mg iron) Tablet
325 mg PO DAILY Qty: 14 0RF
Rx Instructions:
Take for 2 weeks and then stop
ascorbic acid (vitamin C) [Vitamin C] 500 mg Tablet
500 mg PO DAILY Qty: 14 0RF
Rx Instructions:
Take for 14 days and then stop
acetaminophen 325 mg Tablet
650 mg PO Q4HPRN PRN (Reason: mild pain,headache,temp >101F ) Qty: 0 0RF
Rx Instructions:
Please purchase [id number]
gabapentin 100 mg Capsule
100 mg PO TID PRN (Reason: nerve pain ) Qty: 12 0RF
amiodarone 200 mg Tablet
200 mg PO BID Qty: 60 0RF
Rx Instructions:
Taper Amiodarone. Take 200 mg BID x 14 days then take 200 mg daily until seen by Dr. Prakash MD.
oxycodone 5 mg Tablet
5 mg PO .Q6H PRN PRN (Reason: moderate-severe pain) Qty: 24 0RF
Rx Instructions:
Ongoing pain control, attending Dr. Oli Carreno MD.
sennosides-docusate sodium 8.6-50 mg Tablet
1 tab PO Q12 Qty: 0 0RF
Rx Instructions:
Purchase [id number], take as needed while taking oxycodone
Referrals:
Yash Willis DO [Family Provider] -
Interventions
Interventions:
*Risk Screen - Suicide Last Done: 08/09/24 21:49
*General Assessment Last Done: 08/09/24 21:49
*Neglect/Abuse Screening Last Done: 08/09/24 21:49
*ED- Fall Risk Assessment Last Done: 08/09/24 23:59
*ED COVID-19 Vaccine History Last Done: 08/09/24 23:59
OH-Kzarao-Upeajbdgoj Assessment Last Done: 08/10/24 00:37
Discharge Date and Time
Print Language: ICELANDIC
--- NOTE | 2024-08-10 02:18 | HPS.HSE ---
Family Physician
-
Family Physician: Yash Willis
Chief Complaint
-
Episode of bloody bowel movement
History of Present Illness
This is 59-year-old with past medical history significant for chronic diastolic and systolic CHF with mitral valve dysfunction who was recently status post mitral valve repair with left atrial appendage closure complicated by development of atrial
fibrillation for which the patient was started on amiodarone and Eliquis with conversion to sinus rhythm at the time of discharge now presenting to the emergency department with episode of epistaxis and 1 episode of bloody bowel movement.
Patient reports that he has had no symptoms of atrial fibrillation since his discharge from the surgery. He otherwise denies any constipation. He has been using the laxatives as recommended. He has been tapering down on his opioids. He reports
no prior history of GI bleed. He does take aspirin in addition to the Eliquis. The episode of epistaxis was performed and resolved on its own without any intervention. He denies feeling dizzy or lightheaded. He denies any shortness of breath.
Arrival in the emergency department initially was in sinus rhythm however after some time he did convert into atrial fibrillation with rates in the low 110s then converted back to sinus. He feels the palpitations associated with his atrial
fibrillation.
He was afebrile, blood pressure was 130/70 with a pulse of 67 initially. His hemoglobin was 12 which is similar to his discharge moving. Platelet count was normal. INR was 1.0. Electrolytes BUN/creatinine were all within normal range.
Rectal exam in the ED suggestive of hemorrhoid but no bleeding source.
Medical History
Past Medical History
Past Medical History: Reports Other
Additional Past Medical History:
CVA
HLD
Past Surgical History: Reports Other
Additional Past Surgical History:
Appendectomy
Hernia repair
Right lobectomy
Social History
Tobacco: Non-smoker
Alcohol: Occasional (3-4x yearly)
Drug: None
Personal:
Living: With Family
Family History
Family History: Not pertinent
Allergies / Home Medications
Allergies reflects when Allergies were last updated in [facility].
Home Medications with original date entered in [facility]
Allergy/Medication List:
Allergies
Allergy/AdvReac Type Severity Reaction Status Date / Time
No Known Allergies Allergy Verified 08/09/24 23:59
Home Medications
aspirin 81 mg tablet,delayed release 81 mg PO DAILY Blood Clot Prevention/Tx 12/25/22
cyanocobalamin (vitamin B-12) 500 mcg tablet 500 mcg PO DAILY Supplement 06/26/24
rosuvastatin 20 mg tablet 20 mg PO DAILY High Cholesterol 06/26/24
acetaminophen 325 mg tablet 650 mg (2 x 325 mg) PO Q4HPRN PRN mild pain,headache,temp >101F #0 tabs 08/03/24
amiodarone 200 mg tablet 200 mg PO BID #60 tabs 08/03/24
apixaban 5 mg tablet (Eliquis) 5 mg PO BID #60 tabs 08/03/24
ascorbic acid (vitamin C) 500 mg tablet (Vitamin C) 500 mg PO DAILY #14 tabs 08/03/24
ferrous sulfate 325 mg (65 mg iron) tablet (FeroSul) 325 mg PO DAILY #14 tabs 08/03/24
gabapentin 100 mg capsule 100 mg PO TID PRN nerve pain #12 caps 08/03/24
oxycodone 5 mg tablet 5 mg PO .Q6H PRN PRN moderate-severe pain #24 tabs 08/03/24
sennosides 8.6 mg-docusate sodium 50 mg tablet 1 tab PO Q12 #0 tabs 08/03/24
Review of Systems
-
History Source: Patient
Constitutional: Reports No Symptoms
EENT: Reports Other (Epistaxis)
Cardiac: Reports No Symptoms
Abdomen/GI: Reports Bloody Stools
: Reports No Symptoms
Musculoskeletal: Reports No Symptoms
Skin: Reports No Symptoms
Neurological: Reports No Symptoms
Endocrine: Reports No Symptoms
Hematologic/Lymphatic: Reports No Symptoms
Psych: Reports No Symptoms
Physical Exam
Vital Signs
Vital Signs
Temp Pulse Resp BP Pulse Ox
99.1 F 67 22 130/70 96
08/09/24 23:58 08/10/24 01:00 08/10/24 00:45 08/10/24 01:00 08/10/24 01:00
Physical Exam
General: Well Developed, Well Nourished, No Apparent Distress and Comfortable
HEENT: NormoCephalic, Anicteric, Moist mucous membranes and Atraumatic
Respiratory: Clear
Cardiac: S1/S2 and Regular Rhythm
Breast: Deferred by me
GI: Soft, Non Tender, Non Distended and Normal Bowel Sounds
Rectal: Red
Genito-urinary: Deferred by me
Musculoskeletal: No Clubbing, No Cyanosis and No Edema
Skin: Warm
Neuro: Nonfocal/grossly intact
Hematologic/Lymphatic: No Lymphadenopathy
Psych: Calm
Laboratory Results
-
08/09/24 21:56
08/09/24 21:56
Laboratory Results
PT 14.3 Sec (11.4-14.6) 08/09/24 21:56
INR 1.08 08/09/24 21:56
Total Bilirubin 0.5 mg/dl (0.2-1.3) 08/09/24 21:56
AST 43 U/L (17-59) 08/09/24 21:56
ALT 55 U/L (0-50) H 08/09/24 21:56
Alkaline Phosphatase 85 U/L (38-126) 08/09/24 21:56
Data Reviewed
-
Lab Data: Labs Reviewed by me
Old Records: Reviewed
Impression/Plan
-
IMPRESSION:
59 y.o male with h/o CHF with diastolic and systolic dysfunction, MV stenosis s/p recent open thoracotomy mitral valve replacement with bioprosthetic valve and also OLIVER occlusion who comes in with 1 episode of bright red blood per rectum and
epistaxis. His post-op period was complicated by new onset atrial fibrillation for which he was started on dual aspirin and apixaban. Rhythm control on amiodarone. CBC stable. Hemodynamically stable. No active bleed currently. Converting in and
out of afib while in ED and patient aware of the rhythm changes.
PLAN:
1. GI bleed - Suspect hemorrhoidal due to aspirin and anticoagulation. D/W CT surgery. Patient to be admitted to obs
- admit to obs telemetry
- hold doac for now
- trend h/h and monitor for further bleeding
- full liquid diet for now
- continue laxatives
- pain ocntrol per home regimen
- if stable per CT surg can d/c in 12 - 24 hours
2. AFIB - intermittently in and out of afib but mostly sinus.
- continue amiodarone 200 bid
- holding eliquis for now
- cardiology consult on when to restart doac
3. Non-obstructive CAD
- continue statin, hold asa for now
DVT PPX - SCDs
Code status - Full Code
[2024-08-10] MEDS: TYLENOL 650 MG PO (05:26)
[2024-08-10 06:00] LABS: Hematocrit 35.4 % (39.0-52.0); Hemoglobin 11.5 g/dL (13.0-18.0); Mean Corp Hgb Conc. 32.5 g/dL (33.0-37.0); Mean Corpuscular Hgb 32.1 pg (27.0-31.0); Mean Corpuscular Volume 98.9 fL (80.0-94.0); Mean Platelet Volume 8.7 fL (7.4-10.4); Platelet Count 355 10^3/uL (130-400); Red Blood Cell Count 3.58 10^6/uL (4.70-6.10); Red Cell Dist. Width 13.2 % (11.5-14.5); White Blood Cell Count 11.1 10^3/uL (4.8-10.8)
--- NOTE | 2024-08-10 07:35 | PTCARENOTE ---
Assumed care of pt from prev nsg shift; Pt AAOx3 w/no c/o CP or SOB. Pt's VSS w/HR in the 60's & BP 1131/67 this AM. Pt is SR on telemetry monitoring. Pt w/healing sternal incision SOPHY w/surgical glue intact w/no signs or symptoms of bleeding. Pt
reporting 4/10 sternal pain from recent surgery, prev RN had administered PRN Tylenol. Pt declined anything addtl at this time. Pt w/call pulido within reach & plan of care ongoing.
[2024-08-10] MEDS: PACERONE 200 MG PO (10:12)
[2024-08-10] MEDS: SENOKOT-S 1 TABLET PO (10:12)
[2024-08-10] MEDS: VITAMIN C 500 MG PO (10:12)
[2024-08-10] MEDS: CRESTOR 20 MG PO (10:12)
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
--- NOTE | 2024-08-10 11:41 | PTCARENOTE ---
Pt's spouse in & asked this RN to look at a rash pt has on his lower back. Pt states the rash started a few days ago while at & he had started taking PO Benadryl per VN. Rash is red, slightly raised & pt states 'very itchy'. Hospitalist
notified.
--- NOTE | 2024-08-10 11:53 | W.PN.UPDATE ---
Update Note
Progress Note Update
Nonbillable note. Patient admitted past midnight.
Seen and examined at bedside. Patient denies any abdominal pain. Denies any further bleeding. Patient does report he occasionally has hemorrhoidal bleeding. Last colonoscopy was done few years ago and there was no polyps per patient. Hemoglobin
currently stable and vital signs stable. Discussed with patient that he should follow-up with GI closely outpatient. Also should get repeat CBC done outpatient. Discussed with Dr. Wilkinson from cardiology and okay to hold Eliquis today. Restart
Eliquis 08/11. If symptoms recur then return to the hospital. Cardiology started metoprolol. Will DC aspirin per cardiology recommendation on discharge.
General: Well Developed, Well Nourished, No Apparent Distress and Comfortable
HEENT: NormoCephalic, Anicteric, Moist mucous membranes and Atraumatic
Respiratory: Clear
Cardiac: S1/S2 and Regular Rhythm
GI: Soft, Non Tender, Non Distended and Normal Bowel Sounds
Musculoskeletal: No Edema
Neuro: Nonfocal/grossly intact
Psych: Calm
--- NOTE | 2024-08-10 12:03 | W.DCSUMMARY ---
Discharge Summary
Discharge Data
Date of Admission: 08/10/24
Date of Discharge: 08/10/24
-
Pending Results: No
Hospital Course
59-year-old male with past medical history of CHF, mitral valve stenosis status post recent open thoracotomy mitral valve replacement with bioprosthetic valve and also OLIVER occlusion came to the hospital with episode of bright red blood per rectum
and mild epistaxis. Patient symptoms improved on its own and he did not had any further episodes. For his hematochezia, it was thought that it was likely secondary to hemorrhoids. Case was discussed with cardiology and they recommended to
discontinue aspirin and patient can be restarted Eliquis back on 08/11/2024. Patient hemoglobin also remained stable along with stable vitals. On discharge patient instructed to follow-up closely with GI outpatient. Once patient's symptoms
resolved and his hemoglobin and vital signs were stable, he was then discharged home with instructions to follow-up with all his physicians outpatient.
Discharge Plan
-
Patient Disposition: Home (Routine Discharge)
Discharge Diagnosis/Procedures: Mild bright red blood per rectum likely secondary to hemorrhoids
Minor epistaxis
Paroxysmal atrial fibrillation
Severe MR s/p Mini thoracotomy however dense adhesions so converted to standard sternotomy with radical MV repair, OLIVER clip 07/29/24
Diet: Low Fat, Low Cholesterol and Low Sodium
Activity: No strenuous activity
Driving Restrictions: As prior to admission
Blood Work: CBC on Sunday or Sunday with primary care provider
Specialty Instructions: Weigh Daily- Call MD for wt gain/loss 3 lbs overnight/5 lbs in 1 week
Activity Restrictions/Additional Instructions:
Follow-up with your other consultants outpatient
Restart Eliquis 08/11/2024
Referrals:
Yash Willis DO [Family Provider] - in less than 1 week
Keyla Vo MD [Active] -
Prescriptions:
New
metoprolol succinate 25 mg Tablet Extended Release 24 Hr
25 mg PO DAILY Qty: 30 0RF
pantoprazole [Protonix] 40 mg tablet,delayed release (DR/EC)
40 mg PO DAILY Qty: 30 0RF
Continued
cyanocobalamin (vitamin B-12) 500 mcg Tablet
500 mcg PO DAILY
rosuvastatin 20 mg Tablet
20 mg PO DAILY
ferrous sulfate [FeroSul] 325 mg (65 mg iron) Tablet
325 mg PO DAILY Qty: 14 0RF
Rx Instructions:
Take for 2 weeks and then stop
ascorbic acid (vitamin C) [Vitamin C] 500 mg Tablet
500 mg PO DAILY Qty: 14 0RF
Rx Instructions:
Take for 14 days and then stop
acetaminophen 325 mg Tablet
650 mg PO Q4HPRN PRN (Reason: mild pain,headache,temp >101F ) Qty: 0 0RF
Rx Instructions:
Please purchase [id number]
gabapentin 100 mg Capsule
100 mg PO TID PRN (Reason: nerve pain ) Qty: 12 0RF
amiodarone 200 mg Tablet
200 mg PO BID Qty: 60 0RF
Rx Instructions:
Taper Amiodarone. Take 200 mg BID x 14 days then take 200 mg daily until seen by Dr. Prakash MD.
oxycodone 5 mg Tablet
5 mg PO .Q6H PRN PRN (Reason: moderate-severe pain) Qty: 24 0RF
Rx Instructions:
Ongoing pain control, attending Dr. Oli Carreno MD.
sennosides-docusate sodium 8.6-50 mg Tablet
1 tab PO Q12 Qty: 0 0RF
Rx Instructions:
Purchase [id number], take as needed while taking oxycodone
Held
Eliquis 5 mg Tablet
5 mg PO BID Qty: 60 1RF
Hold Instructions: Resume on 08/11/24.
Discontinued
aspirin 81 mg Tablet,Delayed Release (Dr/Ec)
81 mg PO DAILY
Discharge Orders:
Discharge Patient (As Directed); Ordered 08/10/24
Ordered By: Nick Huerta
Discharge Date and Time
Discharge Date/Time: 08/10/24 15:20
Print Language: AZERI
[2024-08-10] MEDS: ASPIR LOW (ENTERIC COATED) 81 MG PO (12:29)
[2024-08-10] MEDS: BENADRYL 25 MG PO (12:29)
[2024-08-10] MEDS: TOPROL XL 25 MG PO (12:29)
--- NOTE | 2024-08-10 15:35 | PTCARENOTE ---
Pt's IV line & telemetry pack D/C'd. Discussed pt's D/C instructions w/pt & spouse. Pt driven home by spouse. Left w/personal belongings incl cell phone.
== END 2024-08-10 15:20 | disposition home or self-care (01) ==
LOC: IVU 03:22
PROVIDERS: Emergency Medicine; ADMITTING PHYSICIAN Internal Medicine; ATTENDING PHYSICIAN Internal Medicine; CONSULT PHYSICIAN Internal Medicine Cardiovascular Disease; EMERGENCY PHYSICIAN Emergency Medicine; FAMILY PHYSICIAN Family Medicine
DX: D68.32 Hemorrhagic disorder due to extrinsic circulating anticoagulants (principal); K92.1 Melena; R04.0 Epistaxis; K64.9 Unspecified hemorrhoids; I48.0 Paroxysmal atrial fibrillation; I25.10 Atherosclerotic heart disease of native coronary artery without angina pectoris; T45.515A Adverse effect of anticoagulants, initial encounter; E78.00 Pure hypercholesterolemia, unspecified; Y92.9 Unspecified place or not applicable; I11.0 Hypertensive heart disease with heart failure; I50.42 Chronic combined systolic (congestive) and diastolic (congestive) heart failure; I05.8 Other rheumatic mitral valve diseases; R21 Rash and other nonspecific skin eruption; Z79.01 Long term (current) use of anticoagulants; Z90.49 Acquired absence of other specified parts of digestive tract; Z95.2 Presence of prosthetic heart valve; Z79.82 Long term (current) use of aspirin; Z79.899 Other long term (current) drug therapy; Z86.73 Personal history of transient ischemic attack (TIA), and cerebral infarction without residual deficits; Z87.74 Personal history of (corrected) congenital malformations of heart and circulatory system; Z90.2 Acquired absence of lung [part of]
CPT/HCPCS: 80053; 85025; 85027; 85610; 93005; 99284; G0378

== ENCOUNTER → 2024-08-13 13:31 | Outpatient (REF) | payer OTHER, MEDICARE, SELFPAY ==
[2024-08-13 15:15] LABS: % Basophils 0.3 % (0-2); % Eosinophils 4.2 % (0-6); % Immature Granulocytes 0.7 % (0-0.5); % Lymphocytes 13.1 % (20.5-51.1); % Monocytes 7.8 % (1.7-9.3); % Neutrophils 73.9 % (42.2-75.2); Absolute Eosinophils 0.3 10^3/uL (0-0.7); Absolute Immature Granulocytes 0.1 10^3/uL (0-0.05); Absolute Lymphocytes 0.9 10^3/uL (1.2-3.4); Absolute Monocytes 0.5 10^3/uL (0.1-0.6); Absolute Neutrophils 5.1 10^3/uL (1.4-6.5); Hematocrit 36.3 % (39.0-52.0); Hemoglobin 11.4 g/dL (13.0-18.0); Mean Corp Hgb Conc. 31.4 g/dL (33.0-37.0); Mean Corpuscular Hgb 31.8 pg (27.0-31.0); Mean Corpuscular Volume 101.4 fL (80.0-94.0); Mean Platelet Volume 9.1 fL (7.4-10.4); Nucleated Red Blood Cells % 0 % (-); Platelet Count 422 10^3/uL (130-400); Red Blood Cell Count 3.58 10^6/uL (4.70-6.10); Red Cell Dist. Width 13.2 % (11.5-14.5); White Blood Cell Count 6.9 10^3/uL (4.8-10.8)
== END ==
LOC: REG 13:31
PROVIDERS: ATTENDING PHYSICIAN Family Medicine
DX: R79.9 Abnormal finding of blood chemistry, unspecified (principal)
CPT/HCPCS: 36415; 85025

== ENCOUNTER → 2024-08-18 16:28 | Outpatient (REF) | payer OTHER, MEDICARE, SELFPAY ==
[2024-08-18 17:06] LABS: % Basophils 0.5 % (0-2); % Eosinophils 3.9 % (0-6); % Immature Granulocytes 0.2 % (0-0.5); % Lymphocytes 18.4 % (20.5-51.1); % Monocytes 9.6 % (1.7-9.3); % Neutrophils 67.4 % (42.2-75.2); Absolute Eosinophils 0.2 10^3/uL (0-0.7); Absolute Monocytes 0.5 10^3/uL (0.1-0.6); Absolute Neutrophils 3.8 10^3/uL (1.4-6.5); Hematocrit 37.1 % (39.0-52.0); Hemoglobin 12.2 g/dL (13.0-18.0); Mean Corp Hgb Conc. 32.9 g/dL (33.0-37.0); Mean Corpuscular Hgb 32.2 pg (27.0-31.0); Mean Corpuscular Volume 97.9 fL (80.0-94.0); Nucleated Red Blood Cells % 0 % (-); Platelet Count 326 10^3/uL (130-400); Red Blood Cell Count 3.79 10^6/uL (4.70-6.10); Red Cell Dist. Width 13.2 % (11.5-14.5); White Blood Cell Count 5.7 10^3/uL (4.8-10.8)
[2024-08-18 17:09] LABS: INR 1.09; PT 14.4 Sec (11.4-14.6)
[2024-08-18 17:10] LABS: APTT 28.7 Sec (23.4-35.0)
[2024-08-18 17:16] LABS: ALT (SGPT) 39 U/L (0-50); AST (SGOT) 26 U/L (17-59); Albumin 4.4 g/dl (3.5-5.0); Alkaline Phosphatase 83 U/L (38-126); Blood Urea Nitrogen 9 mg/dl (9-20); Carbon Dioxide 27 mmol/L (22-30); Chloride 108 mmol/L (98-107); Glucose 104 mg/dl (70-99); Sodium 144 mmol/L (135-145); Total Bilirubin 0.4 mg/dl (0.2-1.3); Total Protein 7.2 g/dl (6.3-8.2); eGFR > 60.00
[2024-08-18 17:22] LABS: Erythrocyte Sed Rate 51 mm/hour (0-20)
== END ==
LOC: REG 16:28
PROVIDERS: ATTENDING PHYSICIAN Physician Assistant Medical; FAMILY PHYSICIAN Family Medicine
DX: D64.9 Anemia, unspecified (principal); R74.8 Abnormal levels of other serum enzymes; R21 Rash and other nonspecific skin eruption; K62.5 Hemorrhage of anus and rectum
CPT/HCPCS: 36415; 80053; 85025; 85610; 85652; 85730

== ENCOUNTER 2024-09-29 08:50 | Outpatient (RCR) | payer OTHER, MEDICARE, SELFPAY | END 2024-09-29 23:59 | disposition home or self-care (01) | LOC: CRHB 08:50 | PROVIDERS: ATTENDING PHYSICIAN Internal Medicine Cardiovascular Disease; FAMILY PHYSICIAN Family Medicine | DX: I50.32 Chronic diastolic (congestive) heart failure (principal); Z95.4 Presence of other heart-valve replacement | CPT/HCPCS: 93797; 93798; G0422; G0423 ==

== ENCOUNTER 2024-10-22 08:51 | Outpatient (RCR) | payer OTHER, MEDICARE, SELFPAY | END 2024-10-22 23:59 | disposition home or self-care (01) | LOC: CRHB 08:51 | PROVIDERS: ATTENDING PHYSICIAN Internal Medicine Cardiovascular Disease; FAMILY PHYSICIAN Family Medicine | DX: Z95.4 Presence of other heart-valve replacement (principal) | CPT/HCPCS: 93798 ==

== ENCOUNTER → 2025-01-14 09:19 | Outpatient (REF) | payer OTHER, MEDICARE, SELFPAY ==
[2025-01-14 10:02] LABS: D-Dimer 1.02 ug/mlFEU (0.00-0.50)
[2025-01-14 10:19] LABS: ALT (SGPT) 22 U/L (0-50); AST (SGOT) 21 U/L (17-59); Albumin 4.4 g/dl (3.5-5.0); Alkaline Phosphatase 88 U/L (38-126); Blood Urea Nitrogen 11 mg/dl (9-20); Calcium 9.5 mg/dl (8.4-10.2); Carbon Dioxide 28 mmol/L (22-30); Chloride 104 mmol/L (98-107); Glucose 104 mg/dl (70-99); HDL Cholesterol 54 mg/dl; Iron 37 ug/dl (49-181); LDL Cholesterol, Calculated 82 mg/dl; Potassium 4.2 mmol/L (3.5-5.1); Sodium 142 mmol/L (135-145); Total Protein 7.3 g/dl (6.3-8.2); Very Low Density Lipoprotein 21 mg/dl (0-30); eGFR > 60.00
[2025-01-14 10:28] LABS: Total Iron Binding Capacity 334 ug/dl (261-462)
[2025-01-14 10:49] LABS: TSH 1.28 uIU/ml (0.47-4.68)
[2025-01-14 10:54] LABS: Ferritin 147.0 ng/ml (17.9-464.0)
[2025-01-14 11:08] LABS: Vitamin B12 386 pg/ml (239-931)
[2025-01-14 14:14] LABS: Folate 19.1 ng/ml (2.76-20)
[2025-01-16 00:20] LABS: Gastric Parietal Cell Ab, IgG 1.0 Units (0.0-24.9)
[2025-01-16 17:30] LABS: Intrinsic Factor Blocking Ab Negative (Negative)
== END ==
LOC: REG 09:19
PROVIDERS: ATTENDING PHYSICIAN Nurse Practitioner; FAMILY PHYSICIAN Family Medicine; REFERRING PHYSICIAN Nurse Practitioner Family
DX: R41.3 Other amnesia (principal); R10.9 Unspecified abdominal pain; E53.9 Vitamin B deficiency, unspecified; R06.9 Unspecified abnormalities of breathing; I34.0 Nonrheumatic mitral (valve) insufficiency; I48.0 Paroxysmal atrial fibrillation; E78.5 Hyperlipidemia, unspecified; Z86.73 Personal history of transient ischemic attack (TIA), and cerebral infarction without residual deficits; I10 Essential (primary) hypertension; R07.89 Other chest pain
CPT/HCPCS: 36415; 71101; 80053; 80061; 82607; 82728; 82746; 83516; 83540; 83550; 83921; 84443; 85379; 86340

== ENCOUNTER → 2025-01-15 13:13 | Outpatient (REF) | payer OTHER, MEDICARE, SELFPAY | LOC: RAD 13:13 | PROVIDERS: ATTENDING PHYSICIAN Family Medicine | DX: R79.89 Other specified abnormal findings of blood chemistry (principal) | CPT/HCPCS: 71275; Q9967 ==

== ENCOUNTER → 2025-02-09 15:44 | Outpatient (REF) | payer OTHER, MEDICARE, SELFPAY | LOC: HWRCS 15:44 | PROVIDERS: ATTENDING PHYSICIAN Thoracic Surgery (Cardiothoracic Vascular Surgery); FAMILY PHYSICIAN Family Medicine | DX: Z98.890 Other specified postprocedural states (principal) | CPT/HCPCS: 93306 ==